=== PATIENT | female | born 1965 | race Caucasian/White ===

== ENCOUNTER 2018-08-04 12:38 | Emergency (ER) | payer MEDICAID ==
[~2018-08-04] VITALS: Ht 167.6 cm; Wt 167.8 kg
[~2018-08-04 12:38] MED LIST: CALC667T2 PO; ENAL2.5T PO; GABA300C10 PO; GLIP-115 PO; KETO2CRE4 TOP; LEVO200T7 PO; METF-370 PO
[2018-08-04 13:37] VITALS: BP 137/73
== END 2018-08-04 14:09 | disposition home or self-care (01) ==
LOC: ER 12:38
DX: E03.9 Hypothyroidism, unspecified (principal); E11.9 Type 2 diabetes mellitus without complications; I10 Essential (primary) hypertension; Z76.0 Encounter for issue of repeat prescription; Z88.0 Allergy status to penicillin

== ENCOUNTER 2019-04-14 20:42 | Inpatient (IN) | payer MEDICAID ==
[~2019-04-14] VITALS: Ht 170.2 cm; Wt 158.2 kg
[2019-04-14 21:48] LABS: Hemoglobin 13.5 g/dL (12.2-16.2); Mean Corpuscular Hgb Conc. 32.1 g/dL (32.0-36.0); Platelet Count (auto) 155 10^3/uL (140-450); Red Blood Cells 5.19 10^6/uL (4.0-5.20); Red Cell Distribution Width 17.3 % (11.8-14.3)
[2019-04-14 22:00] LABS: Calcium 7.9 mg/dL (8.5-10.1); Potassium 3.6 mmol/L (3.5-5.1); White Blood Cell 31.3 10^3/uL (4.4-10.8)
[2019-04-14 22:02] LABS: Basophils % (manual) 0 (0.0-2.0); Blast Cells 0; Eosinophils % (manual) 0 (0-7); Metamyelocytes % 0; Myelocytes % 0; Promyelocytes % 0; Reactive Lymphocytes 0
[2019-04-14 22:05] LABS: BUN/Creatinine Ratio 20.5; Bilirubin, Total 0.8 mg/dL (0.2-1.0); Total Protein 7.2 g/dL (6.4-8.2)
[2019-04-14] MEDS ORDERED: VANCOMYCIN 1GM/250ML 250 ML IV ONE (23:00)
[2019-04-14] MEDS ORDERED: CEFTRIAXONE SODIUM 2 GM in D5W 5% 50 ML IV ONE (23:00)
[2019-04-14] MEDS ORDERED: SODIUM CHLORIDE 0.9% 2,000 ML IV ONE (23:00)
[2019-04-14 23:14] LABS: Band Neutrophils % (manual) 11; Lymphocytes % (manual) 2 (10.0-50.0); Monocytes % (manual) 4 (0-12)
[2019-04-14] MEDS ORDERED: cefTRIAXone 1GM/50ML D5W 100 ML IV ONE (23:37)
[2019-04-15] MEDS ORDERED: HYDROcodone-ACET 7.5/325MG TAB PO ONE (00:45)
[2019-04-15 01:53] LABS: Urine Amorphous Crystal FEW /hpf (None Seen); Urine Bacteria MANY /hpf (None Seen); Urine Blood 1+ /uL (Negative); Urine Specific Gravity 1.022 (1.001-1.035); Urine WBC 116 /hpf (0 - 5); Urine WBC Clumps PRESENT /hpf (None Seen)
[2019-04-15] MEDS ORDERED: ONDANSETRON HCL 4 MG/2 ML VIAL IV PRN (03:00)
[2019-04-15] MEDS ORDERED: DEXTROSE (50%) 50ML SYRG IV PRN (03:00)
[2019-04-15] MEDS: SODIUM CHLORIDE 0.9% 1,000 ML IV SCH ×3 (03:27→23:24)
[2019-04-15] MEDS ORDERED: FLUCONAZOLE 200MG/100ML 100 ML IV ONE (03:30)
[2019-04-15] MEDS ORDERED: NITROGLYCERIN 0.4 MG SL TAB SL PRN (03:45)
[2019-04-15] MEDS ORDERED: MORPHINE SULF INJ 2 MG/ML SYRINGE 1ML IV PRN (03:45)
[2019-04-15] MEDS ORDERED: AZTREONAM 1GM INJ 1 GM in D5W 5% 50 ML IV SCH (06:00)
[2019-04-15] MEDS ORDERED: LEVOTHYROXINE PO SCH ×2 (06:00)
[2019-04-15] MEDS: ACCU-CHEK COMFORT CURVE STRIP VI SCH ×4 (06:52→22:57)
[2019-04-15] MEDS: LEVOTHYROXINE SODIUM 100 MCG TAB PO SCH (06:59)
[2019-04-15] MEDS: PANTOPRAZOLE 40 MG TAB PO SCH (06:59)
[2019-04-15] MEDS: InsuLIN REG 1unit/0.01ml Soln (100units/ml) SC SCH ×4 (06:59→23:23)
[2019-04-15] MEDS ORDERED: LEVOTHYROXINE SODIUM 100 MCG TAB PO SCH (07:00)
[2019-04-15] MEDS ORDERED: LEVOTHYROXINE SODIUM 50 MCG TAB PO SCH (07:00)
[2019-04-15 07:20] LABS: BUN/Creatinine Ratio 21.4; Calcium 7.2 mg/dL (8.5-10.1); Potassium 3.5 mmol/L (3.5-5.1)
[2019-04-15 07:22] LABS: Basophils # (auto) 0 uL; Basophils % (auto) 0.1 % (0.0-2.0); Eosinophils # (auto) 0.2 uL; Monocytes # (auto) 0.7 uL; Neutrophils % (auto) 94.9 % (37.0-80.0)
[2019-04-15 07:23] LABS: Eosinophils % (auto) 0.7 % (0.0-7.0); Hematocrit 39.1 % (36.0-46.0); Hemoglobin 12.7 g/dL (12.2-16.2); Lymphocytes # (auto) 0.3 uL; Lymphocytes % (auto) 1.4 % (10.0-50.0); Mean Corpuscular Hemoglobin 26.6 pg (28.0-32.0); Mean Corpuscular Hgb Conc. 32.3 g/dL (32.0-36.0); Mean Corpuscular Volume 82.3 fL (80.0-100.0); Monocytes % (auto) 2.9 % (0.0-12.0); Neutrophils # (auto) 23.8 uL; Platelet Count (auto) 131 10^3/uL (140-450); Red Blood Cells 4.76 10^6/uL (4.0-5.20); Red Cell Distribution Width 17.1 % (11.8-14.3); White Blood Cell 25.1 10^3/uL (4.4-10.8)
--- NOTE | 2019-04-15 10:55 | NUR ---
Telemetry admit from ER H[place],ESPINOZA admitted to Telemetry unit after SBAR received. Patient oriented to Love Saavedra, RN primary RN, unit, room, bed, and unit policies regarding patient care and visiting hours. Patient now on continuous telemetry monitoring, tele box # HC and telemetry reading on arrival to unit is . Patient placed on bedside oxygen, weighed by bedscale and encouraged to call if they need something. All questions and concerns addressed, patient verbalized understanding. Note:
--- NOTE | 2019-04-15 11:00 | NUR ---
Renal ultrasound completed.
--- NOTE | 2019-04-15 11:09 | NUR ---
To CT via WC.
[2019-04-15] MEDS: PARoxetine 20 MG TAB PO SCH (11:38)
[2019-04-15] MEDS: LEVOFLOXACIN 250MG 50 ML IV SCH (11:38)
--- NOTE | 2019-04-15 12:55 | NUR ---
Received call from Micro: blood culture gram + rods. Page placed to Dr. Fernando Barcenas.
[2019-04-15 13:00] VITALS: BP 120/76
[2019-04-15] MEDS: ACETAMINOPHEN 500 MG TAB PO PRN ×2 (14:15→22:48)
[2019-04-15 17:34] VITALS: BP 128/64
--- NOTE | 2019-04-15 19:30 | NUR ---
received pt from day rn poc reviewed
[2019-04-15 22:00] VITALS: BP 123/62
[2019-04-15] MEDS: traZODone HCL 50 MG TAB PO SCH (22:00)
[2019-04-15] MEDS: ATORVASTATIN 20 MG TAB PO SCH (22:45)
[2019-04-15] MEDS: TEMAZEPAM 15 MG CAP PO PRN (22:45)
--- NOTE | 2019-04-16 04:34 | NUR ---
resting with eyes closed no c/o discomfort
[2019-04-16 05:00] VITALS: BP_SYST 125; BP_SYST 99; BP_DIAS 53; BP_DIAS 55
[2019-04-16] MEDS: LEVOTHYROXINE SODIUM 100 MCG TAB PO SCH (05:58)
[2019-04-16] MEDS: PANTOPRAZOLE 40 MG TAB PO SCH (05:58)
[2019-04-16 06:07] LABS: Eosinophils # (auto) 0.1 uL; Eosinophils % (auto) 0.8 % (0.0-7.0); Lymphocytes # (auto) 0.5 uL; Mean Corpuscular Volume 81.6 fL (80.0-100.0); Monocytes # (auto) 0.9 uL
[2019-04-16 06:09] LABS: Basophils # (auto) 0 uL; Basophils % (auto) 0.3 % (0.0-2.0); Hematocrit 35.3 % (36.0-46.0); Hemoglobin 11.4 g/dL (12.2-16.2); Lymphocytes % (auto) 4.2 % (10.0-50.0); Mean Corpuscular Hemoglobin 26.3 pg (28.0-32.0); Mean Corpuscular Hgb Conc. 32.2 g/dL (32.0-36.0); Monocytes % (auto) 7.7 % (0.0-12.0); Neutrophils # (auto) 10.7 uL; Platelet Count (auto) 104 10^3/uL (140-450); Red Blood Cells 4.33 10^6/uL (4.0-5.20); Red Cell Distribution Width 17.4 % (11.8-14.3); White Blood Cell 12.3 10^3/uL (4.4-10.8)
[2019-04-16 06:20] LABS: Anion Gap 10 (5-15); BUN/Creatinine Ratio 21.3; Blood Urea Nitrogen 33 mg/dL (7-18); Carbon Dioxide 22 mmol/L (21-32); Chloride 110 mmol/L (98-107); GFR African American 45 mL/min; GFR Non-African American 37 mL/min; Glucose 151 mg/dL (74-106); Potassium 3.6 mmol/L (3.5-5.1); Sodium 142 mmol/L (136-145)
[2019-04-16 06:23] LABS: INR 1.05 (0.9-1.15); Partial Thromboplastin Time 33.8 sec (23.64-32.05)
[2019-04-16] MEDS: InsuLIN REG 1unit/0.01ml Soln (100units/ml) SC SCH ×4 (06:49→23:16)
[2019-04-16] MEDS: ACCU-CHEK COMFORT CURVE STRIP VI SCH ×4 (06:49→23:17)
--- NOTE | 2019-04-16 07:03 | NUR ---
REPORT GIVEN TO AM NURSE POC REVIEWED
--- NOTE | 2019-04-16 07:30 | NUR ---
Opening Shift Note Report received. Assumed care of patient, awake and alert. No S/S of distress/SOB or pain. Instructed on POC and to call for assist PRN, will continue to monitor for changes Q1hr and PRN.
[2019-04-16 09:00] VITALS: BP 123/66
[2019-04-16] MEDS: SODIUM CHLORIDE 0.9% 1,000 ML IV SCH ×2 (09:00→19:04)
[2019-04-16] MEDS: LEVOFLOXACIN 250MG 50 ML IV SCH (09:37)
[2019-04-16] MEDS: PARoxetine 20 MG TAB PO SCH (09:37)
[2019-04-16] MEDS: ACETAMINOPHEN 500 MG TAB PO PRN (10:03)
--- NOTE | 2019-04-16 10:13 | NUR ---
IV removal IV left wrist DC'd with clean sterile technique, catheter fully intact. Pressure dressing applied to site. Patient tolerated well. NOTE:
[2019-04-16 13:00] VITALS: BP 115/70
--- NOTE | 2019-04-16 13:45 | NUR ---
Dr. Barcenas in to see patient as primary.
[2019-04-16 17:18] VITALS: BP 114/61
--- NOTE | 2019-04-16 19:30 | NUR ---
received pt from day rn poc reviewed
--- NOTE | 2019-04-16 20:30 | NUR ---
family at bedside requested that pt have a socially responsible investment adviser talk with her about her living conditions
[2019-04-16 22:00] VITALS: BP 115/72
[2019-04-16] MEDS: traZODone HCL 50 MG TAB PO SCH (22:00)
--- NOTE | 2019-04-16 23:05 | NUR ---
friend of family negrito bautista [phone]
[2019-04-16] MEDS: ATORVASTATIN 20 MG TAB PO SCH (23:15)
[2019-04-16] MEDS: TEMAZEPAM 15 MG CAP PO PRN (23:18)
--- NOTE | 2019-04-17 02:51 | NUR ---
pts urine being strained after every void
[2019-04-17 05:00] VITALS: BP 122/56
[2019-04-17 06:37] LABS: Red Cell Distribution Width 16.8 % (11.8-14.3)
[2019-04-17] MEDS: LEVOTHYROXINE SODIUM 100 MCG TAB PO SCH (06:37)
[2019-04-17] MEDS: PANTOPRAZOLE 40 MG TAB PO SCH (06:37)
[2019-04-17] MEDS: SODIUM CHLORIDE 0.9% 1,000 ML IV SCH ×2 (06:37→15:41)
[2019-04-17] MEDS: ACCU-CHEK COMFORT CURVE STRIP VI SCH ×4 (06:38→21:24)
[2019-04-17] MEDS: InsuLIN REG 1unit/0.01ml Soln (100units/ml) SC SCH ×4 (06:39→21:25)
[2019-04-17 06:42] LABS: Hematocrit 37.7 % (36.0-46.0); Hemoglobin 12.5 g/dL (12.2-16.2); Mean Corpuscular Hemoglobin 26.9 pg (28.0-32.0); Mean Corpuscular Hgb Conc. 33.2 g/dL (32.0-36.0); Platelet Count (auto) 122 10^3/uL (140-450); Red Blood Cells 4.65 10^6/uL (4.0-5.20); White Blood Cell 6.4 10^3/uL (4.4-10.8)
[2019-04-17 06:50] LABS: BUN/Creatinine Ratio 19.4; Calcium 7.3 mg/dL (8.5-10.1); Potassium 3.6 mmol/L (3.5-5.1)
[2019-04-17 07:30] LABS: Basophils % (manual) 0 (0.0-2.0); Blast Cells 0; Myelocytes % 0; Promyelocytes % 0; Reactive Lymphocytes 0
--- NOTE | 2019-04-17 08:00 | NUR ---
Opening note Assumed care of patient awake and alert. No S/S of distress noted. Patient has a complaint of 9/10 headache, will medicate per MAR and MD order. Patient updated on POC for the day and all questions answered. Bed is in lowest, locked position with side rails up x2 and call light within reach. Will continue to monitor Q1h and PRN.
[2019-04-17 08:06] LABS: Band Neutrophils % (manual) 8; Eosinophils % (manual) 2 (0-7); Lymphocytes % (manual) 18 (10.0-50.0); Metamyelocytes % 1; Monocytes % (manual) 9 (0-12)
[2019-04-17 08:41] VITALS: BP 108/50
[2019-04-17 09:23] LABS: Free T4 (Free Thyroxine) 0.98 ng/dL (0.89-1.76)
[2019-04-17 09:24] LABS: T3 Total 0.51 ng/mL (0.60-1.81)
[2019-04-17] MEDS: PARoxetine 20 MG TAB PO SCH (10:06)
[2019-04-17] MEDS: LEVOFLOXACIN 250MG 50 ML IV SCH (10:06)
[2019-04-17] MEDS: ACETAMINOPHEN 500 MG TAB PO PRN (10:09)
[2019-04-17 12:43] VITALS: BP 122/75
[2019-04-17] MEDS ORDERED: SUCCINYLCHOLINE CHLORIDE 20 MG/ML 10ML VIAL IV ONE (14:43)
[2019-04-17] MEDS ORDERED: IOHEXOL 300 MG/ML 100ML BOTTLE IJ ONE (14:45)
[2019-04-17] MEDS ORDERED: fentaNYL CITRATE 100 MCG/2 ML VL ONE (14:46)
[2019-04-17] MEDS ORDERED: MIDAZOLAM HCL 1MG/1ML-2 ML VIAL ONE (14:46)
[2019-04-17] MEDS ORDERED: ONDANSETRON HCL 4 MG/2 ML VIAL ONE (14:47)
[2019-04-17] MEDS ORDERED: SODIUM CHLORIDE LOCK 10 ML ONE (14:47)
[2019-04-17] MEDS ORDERED: PROPOFOL 10 MG/ML 20 ML IV ONE (14:47)
[2019-04-17] MEDS ORDERED: ROCURONIUM 10MG/ML 10ML VIAL IV ONE (14:47)
[2019-04-17] MEDS ORDERED: LIDOCAINE HCL 2% TOP JELLY 5ML TOP ONE (14:54)
--- NOTE | 2019-04-17 15:00 | NUR ---
PATIENT TAKEN DOWN FOR PROCEDURE
--- NOTE | 2019-04-17 15:20 | NUR ---
PATIENT BACK FROM PRE-OP, UNABLE TO COMPLETE PROCEDURE.
[2019-04-17] MEDS ORDERED: MANNITOL FTV 25% 12.5 GM/50 ML 50 ML IV ONE (15:30)
[2019-04-17 16:17] VITALS: BP 135/54
--- NOTE | 2019-04-17 16:20 | NUR ---
VAGINAL CULTURE OBTAINED, SENT TO LAB VIA BULLET.
[2019-04-17] MEDS: TAMSULOSIN HYDROCHLORIDE 0.4 MG CAP PO SCH (17:42)
--- NOTE | 2019-04-17 18:20 | NUR ---
DOCTOR HORNER AT BEDSIDE, ORDERS RECEIVED, WILL PLACE AND CARRY OUT.
[2019-04-17] MEDS: ATORVASTATIN 20 MG TAB PO SCH (21:16)
[2019-04-17] MEDS: traZODone HCL 50 MG TAB PO SCH (21:24)
[2019-04-17 21:27] VITALS: BP 137/61
[2019-04-18 04:13] VITALS: BP 126/63
[2019-04-18] MEDS: LEVOTHYROXINE SODIUM 100 MCG TAB PO SCH (06:10)
[2019-04-18] MEDS: PANTOPRAZOLE 40 MG TAB PO SCH (06:10)
[2019-04-18] MEDS: InsuLIN REG 1unit/0.01ml Soln (100units/ml) SC SCH ×3 (06:11→16:58)
[2019-04-18] MEDS: ACCU-CHEK COMFORT CURVE STRIP VI SCH ×3 (06:11→16:58)
[2019-04-18 07:08] LABS: BUN/Creatinine Ratio 16.2; Calcium 7.2 mg/dL (8.5-10.1); Potassium 3.5 mmol/L (3.5-5.1)
[2019-04-18 07:14] LABS: Hemoglobin 11.6 g/dL (12.2-16.2)
[2019-04-18 07:15] LABS: Hematocrit 35.9 % (36.0-46.0); Mean Corpuscular Hemoglobin 26.2 pg (28.0-32.0); Mean Corpuscular Hgb Conc. 32.2 g/dL (32.0-36.0); Mean Corpuscular Volume 81.2 fL (80.0-100.0); Platelet Count (auto) 132 10^3/uL (140-450); Red Blood Cells 4.42 10^6/uL (4.0-5.20); Red Cell Distribution Width 16.6 % (11.8-14.3); White Blood Cell 5.4 10^3/uL (4.4-10.8)
[2019-04-18 08:00] VITALS: BP 120/57
[2019-04-18 08:54] LABS: Basophils % (manual) 0 (0.0-2.0); Blast Cells 0; Metamyelocytes % 0; Myelocytes % 0; Promyelocytes % 0; Reactive Lymphocytes 0
--- NOTE | 2019-04-18 09:06 | NUR ---
Noelle from [facility] called in regards to referral for patient.
[2019-04-18 10:09] LABS: Band Neutrophils % (manual) 14; Eosinophils % (manual) 3 (0-7); Lymphocytes % (manual) 30 (10.0-50.0); Monocytes % (manual) 8 (0-12)
[2019-04-18] MEDS: PARoxetine 20 MG TAB PO SCH (11:26)
[2019-04-18] MEDS: SODIUM CHLORIDE 0.9% 1,000 ML IV SCH ×2 (11:26)
[2019-04-18] MEDS: LEVOFLOXACIN 250MG 50 ML IV SCH (11:27)
--- NOTE | 2019-04-18 11:32 | NUR ---
Nutrition Assessment Notes please see attached link for complete assessment Est. Needs ABW [id number] kcal (17-20 kcal/kgBW), 87-109 gms pro (0.8-1.0 gms/kgBW r/t elev RFT CKD). Will continue to monitor pertinent labs and reassess nutrient need prn Addendum: 04/18/19 at [address] Amended: Links added.
--- NOTE | 2019-04-18 13:20 | NUR ---
APS at bedside
[2019-04-18 14:00] VITALS: BP 122/58
[2019-04-18] MEDS: ACETAMINOPHEN 500 MG TAB PO PRN (14:58)
--- NOTE | 2019-04-18 15:09 | NUR ---
Dr. Espinoza cleared patient for discharge
--- NOTE | 2019-04-18 15:49 | NUR ---
called [facility] case manager to check on APS status
[2019-04-18] MEDS ORDERED: LEVO500T21 PO (16:29)
[2019-04-18] MEDS ORDERED: FLUC150T38 PO (16:29)
[2019-04-18] MEDS: TAMSULOSIN HYDROCHLORIDE 0.4 MG CAP PO SCH (16:58)
[2019-04-18 17:00] VITALS: BP 134/84
--- NOTE | 2019-04-18 20:15 | NUR ---
Discharge instructions given as ordered. Encourage to follow up with PMD as instructed. All questions and concerns addressed. Patient verbalized understanding. Medication reconciliation form completed and copy given to patient. PRESCRIPTIONS FILLED AND GIVEN TO PATIENT BY MORNING SHIFT RN. IV removed with catheter intact, pressure dressing applied BY MORNING SHIFT RN. Telemetry unit returned to ICU BY MORNING SHIFT RN. Patient taken to vehicle via wheelchair with all personal belongings, accompanied by staff and family member. No distress noted at time of departure.
[2019-04-19] MEDS ORDERED: FLUCONAZOLE 100 MG TAB PO SCH (10:00)
== END 2019-04-18 18:30 | disposition home health service (06) | DRG 720 ==
LOC: ER 20:45 → TELE 20:46 → TELE-WESTW 04-15 10:53
PROVIDERS: ADMIT Nurse Practitioner Family; ATTEND Internal Medicine Nephrology
DX: A41.50 Gram-negative sepsis, unspecified (principal); N17.0 Acute kidney failure with tubular necrosis; E11.22 Type 2 diabetes mellitus with diabetic chronic kidney disease; E27.8 Other specified disorders of adrenal gland; N18.3 Chronic kidney disease, stage 3 (moderate); E44.1 Mild protein-calorie malnutrition; N13.6 Pyonephrosis; E66.01 Morbid (severe) obesity due to excess calories; S09.90XA Unspecified injury of head, initial encounter; B37.9 Candidiasis, unspecified; B96.89 Other specified bacterial agents as the cause of diseases classified elsewhere; I12.9 Hypertensive chronic kidney disease with stage 1 through stage 4 chronic kidney disease, or unspecified chronic kidney disease; D35.00 Benign neoplasm of unspecified adrenal gland; K43.9 Ventral hernia without obstruction or gangrene; K76.0 Fatty (change of) liver, not elsewhere classified; N89.8 Other specified noninflammatory disorders of vagina; N90.89 Other specified noninflammatory disorders of vulva and perineum; W18.39XA Other fall on same level, initial encounter; Z79.84 Long term (current) use of oral hypoglycemic drugs; Z82.5 Family history of asthma and other chronic lower respiratory diseases; Z87.442 Personal history of urinary calculi; Z83.3 Family history of diabetes mellitus; Y93.89 Activity, other specified; Y92.89 Other specified places as the place of occurrence of the external cause; Y99.8 Other external cause status; Z68.43 Body mass index [BMI] 50.0-59.9, adult; Z79.899 Other long term (current) drug therapy
CPT/HCPCS: 36415; 36600; 70450; 71045; 74176; 76775; 80048; 80053; 81001; 82010; 82805; 82962; 83036; 83605; 83735; 84439; 84443; 84480; 85007; 85025; 85027; 85610; 85730; 86141; 87040; 87070; 87077; 87086; 87186; 93005; 93306; 96365; 96366; 96368; G0378; J0330; J0696; J1450; J1815; J2250; J2405; J2704; J7060

== ENCOUNTER 2020-08-16 16:38 | Inpatient (IN) | payer MEDICAID ==
[~2020-08-16] VITALS: Ht 170.2 cm; Wt 149.7 kg
[~2020-08-16 16:38] MED LIST changes: -ENAL2.5T PO; +FLUC150T38 PO; -GLIP-115 PO; +GLIP5TAB12 PO; +LEVO500T21 PO
[2020-08-16 17:57] LABS: Hematocrit 38.3 % (36.0-46.0); Hemoglobin 12.3 g/dL (12.2-16.2); Mean Corpuscular Hemoglobin 26.7 pg (28.0-32.0); Mean Corpuscular Volume 83.2 fL (80.0-100.0); Platelet Count (auto) 74 10^3/uL (140-450); Red Cell Distribution Width 16.1 % (11.8-14.3); White Blood Cell 20.1 10^3/uL (4.4-10.8)
[2020-08-16] MEDS ORDERED: SODIUM CHLORIDE 0.9% 1,000 ML IVB ONE ×2 (18:00)
[2020-08-16 18:01] LABS: Basophils % (manual) 0 (0.0-2.0); Blast Cells 0; Eosinophils % (manual) 0 (0-7); Myelocytes % 0; Promyelocytes % 0; Reactive Lymphocytes 0
[2020-08-16 18:05] LABS: Albumin 1.7 g/dL (3.4-5.0); Anion Gap 15 (5-15); Blood Urea Nitrogen 53 mg/dL (7-18); Calcium 7.4 mg/dL (8.5-10.1); Carbon Dioxide 17 mmol/L (21-32); Chloride 102 mmol/L (98-107); Glucose 198 mg/dL (74-106); Potassium 3.7 mmol/L (3.5-5.1); Sodium 134 mmol/L (136-145)
[2020-08-16 18:11] LABS: Alanine Aminotransferase 19 U/L (13-56); Alkaline Phosphatase 190 U/L (45-117); Aspartate Aminotransferase 28 U/L (15-37); BUN/Creatinine Ratio 18.8; Bilirubin, Total 1.8 mg/dL (0.2-1.0); GFR African American 22 mL/min; GFR Non-African American 18 mL/min; Total Protein 5.7 g/dL (6.4-8.2)
[2020-08-16 19:20] LABS: Band Neutrophils % (manual) 39; Lymphocytes % (manual) 6 (10.0-50.0); Metamyelocytes % 1; Monocytes % (manual) 7 (0-12)
[2020-08-16] MEDS ORDERED: cefTRIAXone 1GM/50ML D5W 50 ML IV ONE (19:30)
[2020-08-16 19:51] LABS: INR 1.1 (0.9-1.15); Partial Thromboplastin Time 33.3 sec (23.0-31.2)
[2020-08-16 20:24] LABS: Lactic Acid w/Reflex 3.9 mmol/L (0.4-2.0)
[2020-08-16 21:52] LABS: Urine Amorphous Crystal FEW /hpf (None Seen); Urine Bacteria NONE SEEN /hpf (None Seen); Urine Blood 2+ /uL (Negative); Urine Mucus FEW (None Seen); Urine Specific Gravity 1.023 (1.001-1.035); Urine WBC 854 /hpf (0 - 5); Urine WBC Clumps PRESENT /hpf (None Seen)
[2020-08-16] MEDS ORDERED: ONDANSETRON HCL 4 MG/2 ML VIAL IV PRN (22:30)
[2020-08-16] MEDS ORDERED: MORPHINE SULF INJ 2 MG/ML SYRINGE 1ML IV PRN ×2 (22:30)
[2020-08-16] MEDS ORDERED: NITROGLYCERIN 0.4 MG SL TAB SL PRN (22:30)
[2020-08-16] MEDS: SODIUM CHLORIDE 0.9% 1,000 ML IV SCH (23:14)
[2020-08-17] VITALS (8 sets, daily range): BP systolic 91–157; BP diastolic 49–84
--- NOTE | 2020-08-17 01:50 | NUR ---
Telemetry admit from ER [place] admitted to Telemetry unit after SBAR received. Patient oriented to CLIVE PETERSON RN primary RN, unit, room, bed, and unit policies regarding patient care and visiting hours. Patient now on continuous telemetry monitoring, tele box # 14 and telemetry reading on arrival to unit is Sinus Rhythm at 97BPM. Patient placed on bedside oxygen, weighed by bedscale and encouraged to call if they need something. All questions and concerns addressed, patient verbalized understanding.
--- NOTE | 2020-08-17 03:00 | NUR ---
PATIENT STARTED TO HAVE CHILLS. COVERED WITH BLANKETS AND GIVEN HOT TEA AND WARM PACKS. MONITOR CLOSELY.
--- NOTE | 2020-08-17 04:15 | NUR ---
CHILLS STOP. PATIENT IS RESTING IN BED. NO MORE CHILLS NOTED. PATIENT'S TEMPERATURE AT HIS TIME IS 99.1 . WILL MONITOR.
--- NOTE | 2020-08-17 04:25 | NUR ---
CALLED TO GIVE REPORT TO RECEIVING RN. RN NOT AVAILABLE FOR REPORT AT THIS TIME. WILL MONITOR.
--- NOTE | 2020-08-17 05:00 | NUR ---
REPORT GIVEN TO JINNY QUINTERO RN
--- NOTE | 2020-08-17 05:30 | NUR ---
RECEIVED PATIENT FROM COVID UNIT AND TRANSFERRED WITH HOSPITAL BED. PATIENT TOLERATED WELL. NO S/S OF DISTRESS NOTED. VITALS, TEMP 100.1, HR 124, RR 19, O2 SAT 92% ON RA. BP 94/57. COOLING MEASURE APPLIED. BED IN LOWEST POSITION WITH SIDE RAILS UP X 2. CALL DOLAN WITHIN REACH. ALARM ON. CONTINUE TO MONITOR FOR CHANGES Q1H AND PRN.
--- NOTE | 2020-08-17 05:42 | NUR ---
PATIENT TRANSFERRED TO [facility] WITH ALL PERSONAL BELONGINGS. NO DISTRESS NOTED AT TIME OF TRANSFER.
[2020-08-17 07:14] LABS: Mean Corpuscular Hgb Conc. 32.3 g/dL (32.0-36.0); Red Blood Cells 4.54 10^6/uL (4.0-5.20)
[2020-08-17 07:16] LABS: Hematocrit 37.1 % (36.0-46.0); Mean Corpuscular Hemoglobin 26.4 pg (28.0-32.0); Mean Corpuscular Volume 81.7 fL (80.0-100.0); Platelet Count (auto) 60 10^3/uL (140-450); Red Cell Distribution Width 15.8 % (11.8-14.3); White Blood Cell 9.4 10^3/uL (4.4-10.8)
--- NOTE | 2020-08-17 07:17 | NUR ---
OPENING SHIFT NOTE Assumed care of patient from production utility worker RN. Patient is alert and oriented x4, no signs of distress noted, patient denies pain. She was updated on the plan of care and verbalized understanding. Patient has a saucedo draining cloudy melvin urine to gravity, no kinks or loops noted in the tubing. Bed is locked, in the lowest position and the call light is in reach. Patient was encouraged to call for assistance as needed.
[2020-08-17 07:24] LABS: Potassium 3.2 mmol/L (3.5-5.1)
[2020-08-17 07:30] LABS: Albumin 1.7 g/dL (3.4-5.0); BUN/Creatinine Ratio 22.9; Calcium 7.5 mg/dL (8.5-10.1); Magnesium 2.1 mg/dL (1.6-2.6)
[2020-08-17 07:35] LABS: Basophils % (manual) 0 (0.0-2.0); Blast Cells 0; Eosinophils % (manual) 0 (0-7); Metamyelocytes % 0; Myelocytes % 0; Promyelocytes % 0; Reactive Lymphocytes 0
[2020-08-17 07:38] LABS: Bilirubin, Total 2.3 mg/dL (0.2-1.0); Phosphorus 2.7 mg/dL (2.5-4.90); Total Protein 5.8 g/dL (6.4-8.2)
--- NOTE | 2020-08-17 07:40 | NUR ---
DAIN AT BEDSIDE New order received for CT of abdomen of pelvis without contrast, read back and verified.
--- NOTE | 2020-08-17 08:40 | NUR ---
PATIENT TAKEN TO CT. accompanied by tech. no signs of distress noted.
--- NOTE | 2020-08-17 09:02 | NUR ---
PATIENT BACK FROM CT no signs of distress noted.
[2020-08-17] MEDS: FAMOTIDINE 20 MG TAB PO SCH (09:48)
[2020-08-17] MEDS: cefTRIAXone 1GM/50ML D5W 50 ML IV SCH (09:48)
[2020-08-17] MEDS: SODIUM CHLORIDE 0.9% 1,000 ML IV SCH (09:48)
--- NOTE | 2020-08-17 10:13 | NUR ---
CALLED GAUTAM updated on the patient status and results of CT abdomen, positive blood cultures. New orders received for repeat blood cultures, urology consult for MD YODER. New order also received for ACHS accucheck and mild insulin sliding scale. Orders were read back and verified.
[2020-08-17] MEDS ORDERED: DEXTROSE (50%) 50ML SYRG IV PRN (10:45)
[2020-08-17] MEDS: ACCU-CHEK COMFORT CURVE STRIP VI SCH ×3 (11:20→22:00)
[2020-08-17] MEDS: InsuLIN REG 1unit/0.01ml Soln (100units/ml) SC SCH ×3 (11:36→22:00)
[2020-08-17 12:10] LABS: Urine Bacteria FEW /hpf (None Seen); Urine Blood 2+ /uL (Negative); Urine Mucus FEW (None Seen); Urine Specific Gravity 1.018 (1.001-1.035); Urine WBC 264 /hpf (0 - 5); Urine WBC Clumps PRESENT /hpf (None Seen)
--- NOTE | 2020-08-17 12:59 | NUR ---
PAGED DAIN regarding ordered heparin and patient platelet levels of 60, awaiting call back.
[2020-08-17] MEDS: HEPARIN SODIUM (PORCINE) 5000 UNITS/ML 1ML VIAL SC SCH ×2 (13:30→22:00)
[2020-08-17 14:05] LABS: Band Neutrophils % (manual) 25; Lymphocytes % (manual) 5 (10.0-50.0); Monocytes % (manual) 3 (0-12)
--- NOTE | 2020-08-17 14:25 | NUR ---
DAIN called back order to hold heparin due to decreased platelets, read back and verified
[2020-08-17 14:41] LABS: Creatinine, Urine 83 mg/dL (30.0-125.0); Sodium Urine 33 mmol/L (40-220)
[2020-08-17 14:42] LABS: Protein, Urine 111.6 mg/dL (0.0-11.9)
[2020-08-17] MEDS: ACETAMINOPHEN 325 MG TAB PO PRN (23:56)
--- NOTE | 2020-08-18 02:00 | NUR ---
PT MOVED TO 289A . TOLERATED WELL. OOB AMBULATED TO CHAIR. GOOD STEADY GAIT. CALL LIGHT IN REACH.
[2020-08-18 05:00] VITALS: BP 90/59
[2020-08-18] MEDS: InsuLIN REG 1unit/0.01ml Soln (100units/ml) SC SCH ×4 (05:11→22:33)
[2020-08-18] MEDS: ACCU-CHEK COMFORT CURVE STRIP VI SCH ×4 (05:43→22:33)
[2020-08-18 06:10] LABS: Basophils # (auto) 0 10 ^3/uL (0-0.2); Lymphocytes # (auto) 0.3 10 ^3/uL (0.4-5.4); Lymphocytes % (auto) 1.3 % (10.0-50.0); Monocytes # (auto) 0.6 10 ^3/uL (0-1.3)
[2020-08-18 06:17] LABS: Basophils % (auto) 0.1 % (0.0-2.0); Eosinophils # (auto) 0.5 10 ^3/uL (0-0.8); Eosinophils % (auto) 2.5 % (0.0-7.0); Hematocrit 40.1 % (36.0-46.0); Mean Corpuscular Hemoglobin 26.7 pg (28.0-32.0); Mean Corpuscular Hgb Conc. 32.4 g/dL (32.0-36.0); Mean Corpuscular Volume 82.3 fL (80.0-100.0); Monocytes % (auto) 2.9 % (0.0-12.0); Neutrophils # (auto) 19.4 10 ^3/uL (1.6-8.6); Neutrophils % (auto) 93.2 % (37.0-80.0); Platelet Count (auto) 39 10^3/uL (140-450); Red Blood Cells 4.87 10^6/uL (4.0-5.20); Red Cell Distribution Width 16.3 % (11.8-14.3); White Blood Cell 20.8 10^3/uL (4.4-10.8)
[2020-08-18 06:28] LABS: Potassium 3.9 mmol/L (3.5-5.1)
[2020-08-18 06:33] LABS: Albumin 1.7 g/dL (3.4-5.0); BUN/Creatinine Ratio 23.5; Calcium 7.5 mg/dL (8.5-10.1)
[2020-08-18 06:36] LABS: Bilirubin, Total 3.1 mg/dL (0.2-1.0); Total Protein 6.2 g/dL (6.4-8.2)
[2020-08-18] MEDS: LEVOTHYROXINE SODIUM 100 MCG TAB PO SCH (06:36)
--- NOTE | 2020-08-18 07:02 | NUR ---
OPENING SHIFT NOTE Assumed care of patient from refractory specialist RN. Patient is alert and oriented x4, no signs of distress noted, denies pain. She was updated on the plan of care and verbalized understanding. Bed is locked, in the lowest position, side rails are up x2 and call light is in reach. Patient was encouraged to call for assistance as needed.
[2020-08-18 08:40] VITALS: BP 97/50
--- NOTE | 2020-08-18 09:16 | NUR ---
DAIN AT BEDSIDE Updated on the patient status. Plan of care was discussed with the patient and she verbalized understanding.
[2020-08-18] MEDS ORDERED: ALLOPURINOL 300 MG TAB PO SCH (10:00)
[2020-08-18] MEDS: HEPARIN SODIUM (PORCINE) 5000 UNITS/ML 1ML VIAL SC SCH ×2 (10:00→22:00)
[2020-08-18 10:13] LABS: INR 1.16 (0.9-1.15)
[2020-08-18] MEDS: cefTRIAXone 1GM/50ML D5W 50 ML IV SCH (10:52)
[2020-08-18] MEDS: SODIUM BICARBONATE 50ML VIAL 100 ML in SOD CHL 0.45% 1,000 ML IV SCH ×2 (10:52→20:30)
[2020-08-18] MEDS: ACETAMINOPHEN 325 MG TAB PO PRN (10:52)
[2020-08-18 11:22] LABS: Fibrinogen > 860 mg/dL (177-375)
--- NOTE | 2020-08-18 11:30 | NUR ---
MORIS GAUTAM made aware of DIC panel results, no new orders received.
[2020-08-18 12:46] VITALS: BP 104/47
[2020-08-18] MEDS ORDERED: THROAT LOZENGES(CEPASTAT) MT PRN (16:00)
[2020-08-18 16:33] VITALS: BP 91/50
[2020-08-18] MEDS ORDERED: TAMSULOSIN HYDROCHLORIDE 0.4 MG CAP PO ONE (17:45)
[2020-08-18] MEDS ORDERED: MANNITOL FTV 25% 12.5 GM/50 ML 50 ML IV ONE (17:45)
[2020-08-18] MEDS ORDERED: SODIUM CHLORIDE 0.9% 1,000 ML IV ONE (17:45)
--- NOTE | 2020-08-18 17:50 | NUR ---
BABITA MADE AWARE OF DECREASED BP BP 91/50, Per MD infuse bolus first and then administer mannitol as ordered.
--- NOTE | 2020-08-18 19:30 | NUR ---
Opening Shift Note Assumed care of patient, awake and alert. No S/S of distress/SOB or pain. Instructed on POC and to call for assist PRN, will continue to monitor for changes Q1hr and PRN.
[2020-08-18 20:00] VITALS: BP 118/52
--- NOTE | 2020-08-18 20:00 | NUR ---
IV removal Patient pulled out IV while moving to the bedside commode.
--- NOTE | 2020-08-18 20:30 | NUR ---
IV insertion IV access obtained, via clean sterile technique by inserting 22 gauge catheter at RFA after attempts. IV secured properly. No trauma to site. Patient tolerated well.
[2020-08-18 21:00] VITALS: BP_SYST 118; BP_SYST 152; BP_DIAS 52; BP_DIAS 72
--- NOTE | 2020-08-18 22:50 | NUR ---
A-fib rhythm/MD orders Tele notified this RN about patient rhythm change from Sinus Tach to Afib and high heart rate in the 150s and 160s. Dr. Obando made aware of patient's rhythm and increase heart rate. Dr. Obando ordered and EKG to be done. After EKG results, Dr. Obando ordered 5 mg Metoprolol IV once, 12.5 mg Metoprolol PO once, and 12.5 mg Metoprolol PO BID. Repeated orders to verified.
[2020-08-18] MEDS ORDERED: METOPROLOL TARTRATE 25 MG TAB PO ONE (23:00)
[2020-08-18] MEDS ORDERED: METOPROLOL TARTRATE 1MG/1ML-5ML VIAL IV ONE (23:00)
[2020-08-19] VITALS (7 sets, daily range): BP systolic 111–123; BP diastolic 46–70
--- NOTE | 2020-08-19 00:30 | NUR ---
Bed Bath Bed Bath and bed sheets changed. Patient has a foul/strong smell to the vagina area.
[2020-08-19 05:28] LABS: Hemoglobin 13.1 g/dL (12.2-16.2); Lymphocytes # (auto) 0.7 10 ^3/uL (0.4-5.4); Nucleated Red Blood Cells % 0.1 %; Platelet Count (auto) 35 10^3/uL (140-450)
[2020-08-19 05:32] LABS: Basophils # (auto) 0 10 ^3/uL (0-0.2); Basophils % (auto) 0.3 % (0.0-2.0); Eosinophils # (auto) 0.2 10 ^3/uL (0-0.8); Eosinophils % (auto) 1.2 % (0.0-7.0); Hematocrit 39.5 % (36.0-46.0); Lymphocytes % (auto) 4.1 % (10.0-50.0); Mean Corpuscular Hemoglobin 26.8 pg (28.0-32.0); Mean Corpuscular Hgb Conc. 33.1 g/dL (32.0-36.0); Mean Corpuscular Volume 80.8 fL (80.0-100.0); Monocytes # (auto) 0.6 10 ^3/uL (0-1.3); Monocytes % (auto) 4.1 % (0.0-12.0); Neutrophils # (auto) 14.5 10 ^3/uL (1.6-8.6); Neutrophils % (auto) 90.3 % (37.0-80.0); Red Blood Cells 4.89 10^6/uL (4.0-5.20)
[2020-08-19] MEDS: LEVOTHYROXINE SODIUM 100 MCG TAB PO SCH (06:24)
[2020-08-19] MEDS: InsuLIN REG 1unit/0.01ml Soln (100units/ml) SC SCH ×4 (06:24→22:08)
[2020-08-19] MEDS: ACCU-CHEK COMFORT CURVE STRIP VI SCH ×4 (06:24→22:00)
[2020-08-19] MEDS: SODIUM BICARBONATE 50ML VIAL 100 ML in SOD CHL 0.45% 1,000 ML IV SCH ×2 (08:00→17:21)
[2020-08-19] MEDS: cefTRIAXone 1GM/50ML D5W 50 ML IV SCH (09:48)
[2020-08-19] MEDS: FAMOTIDINE 20 MG TAB PO SCH (09:49)
[2020-08-19] MEDS: METOPROLOL TARTRATE 25 MG TAB PO SCH ×2 (09:50→22:00)
--- NOTE | 2020-08-19 11:30 | NUR ---
BAKELITE MOLDER SPOKE TO DR GOMEZ RE: NEPHROSTOMY TUBE PLACEMENT -STATE PLATGELETS TOO LOW AND NEED TO BE CORRECTED PRIOR TO PROCEDURE - BAKELITE MOLDER INFORMED PATIENT'S RN RENETTA. DR GOMEZ ALSO SPOKE TO DR GAUTAM RE: CORRECTION OF PLATELETS, PATIENT'S RN AWARE. PROCEDURE TENTATIVELY PLANNED FOR TOMORROW AM.
--- NOTE | 2020-08-19 15:34 | NUR ---
URINE SAMPLE SENT TO LAB
--- NOTE | 2020-08-19 15:34 | NUR ---
PATIENT NEEDS TO BE NPO FOR GALLBLADDER ULTRASOUND PER TECH, PATIENT NEEDS TO BE NPO FOR ULTRASOUND. WILL PERFORM TEST AROUND 1999
[2020-08-19 16:23] LABS: Urine Bacteria FEW /hpf (None Seen); Urine Blood 2+ /uL (Negative); Urine Mucus FEW (None Seen); Urine Specific Gravity 1.018 (1.001-1.035); Urine WBC 33 /hpf (0 - 5)
[2020-08-19 16:58] LABS: BUN/Creatinine Ratio 30.3; Calcium 7.1 mg/dL (8.5-10.1)
--- NOTE | 2020-08-19 19:30 | NUR ---
Opening Shift Note Assumed care of patient, awake and alert x4. No S/S of distress/SOB or pain. Tele box matches pt all leads in place. Bed lowered and locked call light in reach. Instructed on POC and to call for assist PRN, will continue to monitor for changes Q1hr and PRN.
--- NOTE | 2020-08-19 19:45 | NUR ---
PAGED DR GAUTAM REGARDING BLOOD CONSENT NOT BEING SIGNED BY PHYSICIAN, UNABLE TO SOLE TRIMMER ANY BLOOD PRODUCT WITHOUT SIGNATURE, ER MD WILL NOT SIGN CONSENT. WILL ENDORSE TO STOREHOUSE CLERK RN.
--- NOTE | 2020-08-19 20:12 | NUR ---
Dr Forbes gave verbal consent for blood product transfusion (platelets) transfusion for pt
[2020-08-19] MEDS: ACETAMINOPHEN 325 MG TAB PO PRN (21:45)
[2020-08-20] VITALS (21 sets, daily range): BP systolic 92–151; BP diastolic 49–111
[2020-08-20] MEDS: SODIUM BICARBONATE 50ML VIAL 100 ML in SOD CHL 0.45% 1,000 ML IV SCH ×2 (05:30→15:32)
[2020-08-20] MEDS: ACCU-CHEK COMFORT CURVE STRIP VI SCH ×4 (06:49→22:29)
[2020-08-20] MEDS: LEVOTHYROXINE SODIUM 100 MCG TAB PO SCH (06:49)
[2020-08-20] MEDS: InsuLIN REG 1unit/0.01ml Soln (100units/ml) SC SCH ×4 (06:51→22:31)
[2020-08-20 07:11] LABS: Hematocrit 36.7 % (36.0-46.0); Hemoglobin 11.9 g/dL (12.2-16.2); Mean Corpuscular Hemoglobin 26.5 pg (28.0-32.0); Mean Corpuscular Hgb Conc. 32.5 g/dL (32.0-36.0)
[2020-08-20 07:24] LABS: INR 1.02 (0.9-1.15); Partial Thromboplastin Time 26.9 sec (23.0-31.2)
[2020-08-20 07:30] LABS: Calcium 6.8 mg/dL (8.5-10.1); Potassium 3.7 mmol/L (3.5-5.1)
[2020-08-20 07:43] LABS: Basophils # (auto) 0 10 ^3/uL (0-0.2); Basophils % (auto) 0.1 % (0.0-2.0); Eosinophils # (auto) 0.1 10 ^3/uL (0-0.8); Eosinophils % (auto) 0.3 % (0.0-7.0); Lymphocytes # (auto) 0.8 10 ^3/uL (0.4-5.4); Lymphocytes % (auto) 4.5 % (10.0-50.0); Mean Corpuscular Volume 81.5 fL (80.0-100.0); Monocytes # (auto) 0.6 10 ^3/uL (0-1.3); Monocytes % (auto) 3.6 % (0.0-12.0); Neutrophils # (auto) 15.3 10 ^3/uL (1.6-8.6); Neutrophils % (auto) 91.5 % (37.0-80.0); Platelet Count (auto) 36 10^3/uL (140-450); Red Cell Distribution Width 16.2 % (11.8-14.3); White Blood Cell 16.7 10^3/uL (4.4-10.8)
[2020-08-20] MEDS ORDERED: fentaNYL CITRATE 100 MCG/2 ML VL IV ONE (08:00)
[2020-08-20] MEDS ORDERED: IV IMMUNE GLOBULIN(IVIG) 10% 20G/200ML IV SCH (10:00)
[2020-08-20] MEDS ORDERED: levoFLOXacin 750MG 150 ML IV SCH (10:00)
[2020-08-20] MEDS: METOPROLOL TARTRATE 25 MG TAB PO SCH ×2 (10:46→22:29)
--- NOTE | 2020-08-20 13:27 | NUR ---
3 units of platelets transfused Pt tolerated well, VS stable throughout, no adverse reaction noted.
[2020-08-20] MEDS: FAMOTIDINE 20 MG TAB PO SCH ×2 (13:45→22:29)
[2020-08-20] MEDS: ACETAMINOPHEN 325 MG TAB PO SCH (13:46)
[2020-08-20] MEDS: diphenhdrAMINE HCL 50 MG/1 ML VL IV SCH (13:46)
[2020-08-20] MEDS: methylPREDNISolone SOD SUCC 40 MG/ML VL IV SCH (13:46)
[2020-08-20 14:11] LABS: Albumin 1.5 g/dL (3.4-5.0); Bilirubin, Direct 0.8 mg/dL (0-0.2)
[2020-08-20 14:15] LABS: Bilirubin, Total 1.2 mg/dL (0.2-1.0); Total Protein 5.1 g/dL (6.4-8.2)
[2020-08-20] MEDS: IV IMMUNE GLOBULIN(IVIG) 10% 20G/200ML IV SCH (14:31)
[2020-08-20 14:59] LABS: Basophils # (auto) 0 10 ^3/uL (0-0.2); Eosinophils # (auto) 0 10 ^3/uL (0-0.8); Eosinophils % (auto) 0.2 % (0.0-7.0); Mean Corpuscular Hemoglobin 26.3 pg (28.0-32.0); Platelet Count (auto) 64 10^3/uL (140-450)
[2020-08-20 15:00] LABS: Basophils % (auto) 0.2 % (0.0-2.0); Hematocrit 35.3 % (36.0-46.0); Hemoglobin 11.6 g/dL (12.2-16.2); Lymphocytes # (auto) 0.3 10 ^3/uL (0.4-5.4); Mean Corpuscular Hgb Conc. 32.9 g/dL (32.0-36.0); Monocytes # (auto) 0.8 10 ^3/uL (0-1.3); Monocytes % (auto) 4.3 % (0.0-12.0); Neutrophils # (auto) 16.3 10 ^3/uL (1.6-8.6); Neutrophils % (auto) 93.3 % (37.0-80.0); Red Blood Cells 4.42 10^6/uL (4.0-5.20); Red Cell Distribution Width 15.9 % (11.8-14.3); White Blood Cell 17.5 10^3/uL (4.4-10.8)
--- NOTE | 2020-08-20 16:24 | NUR ---
Nutrition Assessment Notes Please refer to link for full assessment notes. Est Energy needs: 6870-7536 kcals (12-15 kcal/kgBW) Est Protein needs: 130-163 gms/day (0.8-1.0 gm/kgBW) Will continue to monitor and reassess prn. Addendum: 08/20/20 at [address] Amended: Links added.
[2020-08-20] MEDS: ACETAMINOPHEN 325 MG TAB PO PRN (16:43)
--- NOTE | 2020-08-20 18:38 | NUR ---
PATIENT ROUNDS PATIENT SITTING OFF THE SIDE OF THE BED, EATING DINNER. NO DISTRESS NOTED. PATIENT JUNE PAIN AT THIS TIME. WILL ENDORSE CARE TO CONTENT ARCHITECT RN.
--- NOTE | 2020-08-20 19:15 | NUR ---
Opening Shift Note Assumed care of patient, awake and alert x 4. No S/S of distress/SOB or pain. Tele box matches pt all leads in place. Bed locked and lowered side rails up x 2. Call light and bedside table within reach. Instructed on POC and to call for assist PRN, will continue to monitor for changes Q1hr and PRN.
[2020-08-21] VITALS (7 sets, daily range): BP systolic 107–139; BP diastolic 60–98
--- NOTE | 2020-08-21 01:17 | NUR ---
Pt having platelet transfusion bags of platelets do not scan lab verified can override.
--- NOTE | 2020-08-21 01:18 | NUR ---
Vitals before transfusion 98.50 oral, HR 117, BP 139/98, RR 26, O2sat 92%
--- NOTE | 2020-08-21 02:48 | NUR ---
Transfusion ended vitals; 98.2, BP 127/80, HR 101, RR24, O2SAT 93%. No signs of distress, tolerated well.
[2020-08-21] MEDS: SODIUM BICARBONATE 50ML VIAL 100 ML in SOD CHL 0.45% 1,000 ML IV SCH ×2 (03:30→14:30)
[2020-08-21 06:18] LABS: Basophils # (auto) 0 10 ^3/uL (0-0.2); Eosinophils # (auto) 0 10 ^3/uL (0-0.8); Lymphocytes # (auto) 0.4 10 ^3/uL (0.4-5.4); Lymphocytes % (auto) 2.1 % (10.0-50.0); Monocytes # (auto) 0.4 10 ^3/uL (0-1.3); Neutrophils # (auto) 16.2 10 ^3/uL (1.6-8.6)
[2020-08-21 06:26] LABS: Basophils % (auto) 0.2 % (0.0-2.0); Hematocrit 37.4 % (36.0-46.0); Hemoglobin 12.1 g/dL (12.2-16.2); Mean Corpuscular Hemoglobin 26.4 pg (28.0-32.0); Mean Corpuscular Hgb Conc. 32.5 g/dL (32.0-36.0); Mean Corpuscular Volume 81.3 fL (80.0-100.0); Monocytes % (auto) 2.2 % (0.0-12.0); Neutrophils % (auto) 95.5 % (37.0-80.0); Platelet Count (auto) 71 10^3/uL (140-450); Red Cell Distribution Width 16.2 % (11.8-14.3)
[2020-08-21] MEDS: LEVOTHYROXINE SODIUM 100 MCG TAB PO SCH (06:34)
[2020-08-21] MEDS: ACCU-CHEK COMFORT CURVE STRIP VI SCH ×4 (06:35→22:23)
[2020-08-21] MEDS: InsuLIN REG 1unit/0.01ml Soln (100units/ml) SC SCH ×4 (06:36→22:29)
[2020-08-21 06:38] LABS: Potassium 3.6 mmol/L (3.5-5.1)
[2020-08-21 06:47] LABS: BUN/Creatinine Ratio 26.8
--- NOTE | 2020-08-21 07:00 | NUR ---
Patient Received Patient report received from night nurse.
--- NOTE | 2020-08-21 09:00 | NUR ---
PATIENT ABDOMEN MEASURED FOR C.T. PROCEDURE THIS AM - PATIENT GIRTH MEASURES 36 INCHES WHICH EXCEEDS THE C.T. SCANNER GANTRY. LIQUID YEAST SUPERVISOR AND U.S. TECH INFORMED PATIENT'S RN RENETTA. CALL PLACED TO DR PATEL.
[2020-08-21] MEDS: FAMOTIDINE 20 MG TAB PO SCH ×2 (09:45→22:23)
[2020-08-21] MEDS: METOPROLOL TARTRATE 25 MG TAB PO SCH ×2 (09:51→22:23)
[2020-08-21] MEDS: levoFLOXacin 750MG 150 ML IV SCH (10:06)
--- NOTE | 2020-08-21 10:24 | NUR ---
DR PATEL RETURNS PHONE CALL - INFORMED OF INABILITY TO PLACE PERCUTANEOUS NEPHROSTOMY TUBE DUE WIDE GIRTH - STATES HE WILL CALL UROLOGY- FABI JACKSON INFORMED. WILL DISCONTINUE ORDER. FABI JACKSON INFORMED.
[2020-08-21] MEDS: methylPREDNISolone SOD SUCC 40 MG/ML VL IV SCH (12:49)
[2020-08-21] MEDS: diphenhdrAMINE HCL 50 MG/1 ML VL IV SCH (12:50)
[2020-08-21] MEDS: ACETAMINOPHEN 325 MG TAB PO SCH (12:52)
--- NOTE | 2020-08-21 13:10 | NUR ---
IV removal IV DC'd with clean sterile technique, catheter fully intact. Pressure dressing applied to site. Patient tolerated well.
--- NOTE | 2020-08-21 13:22 | NUR ---
Provider at bedside Dr. Harmon is at bedside talking with patient.
--- NOTE | 2020-08-21 13:40 | NUR ---
IV insertion IV access obtained, via clean sterile technique by inserting 20 gauge catheter at right forearm after 0 attempt(s). IV secured properly. No trauma to site. Patient tolerated well.
[2020-08-21] MEDS: IV IMMUNE GLOBULIN(IVIG) 10% 20G/200ML IV SCH (14:29)
--- NOTE | 2020-08-21 14:30 | NUR ---
IV SODIUM BICARB NON-ADMIN IV IMMUNE GLOBULIN CURRENTLY RUNNING, PATIENT ONLY HAS ONE IV AND REFUSES 2ND IV, PATIENT IS A HARD STICK. ONCE CURRENT MEDICATION ADMINISTRATION IS COMPLETE, WILL SWITCH PATIENT TO ORDERED SODIUM BICARBONATE FLUIDS
--- NOTE | 2020-08-21 16:19 | NUR ---
SCD's APPLIED BILATERALLY TO LOWER EXTREMITIES
--- NOTE | 2020-08-21 16:29 | NUR ---
Assessment This is a 55-year-old female, who is alert and oriented. Patient has history of diabetes type 2 diabetes Patient cognitive abilities are intact. Patient states that she can do all ADLs independently and uses a walker for assistance. Patient is unemployed and declines to give income resources. Patient lives alone and will return home post discharge. Patient brother (Jesus [phone]) will provide transportation post discharge. Patient is not receptive to receive Advance Directive. Discharge planning: Patient has supplies and will resume diabetic home care. Additional post discharge needs are yet to be determine at this moment. Addendum: 08/21/20 at 1630 by ANGEL LAGOS Amended: Links added.
--- NOTE | 2020-08-21 18:42 | NUR ---
PATIENT ROUNDS PATIENT SITTING UP IN CHAIR EATING DINNER. NO DISTRESS NOTED. PATIENT JUNE PAIN AT THIS TIME. WILL ENDORSE CARE TO CRYPTOGRAPHIC VULNERABILITY ANALYST RN.
--- NOTE | 2020-08-21 19:45 | NUR ---
RECEIVED PATIENT FROM DAY SHIFT RN. PATIENT SITTING ON THE SIDE OF THE BED. NO S/S OF DISTRESS NOTED. DENIED PAIN AT THIS TIME. VILLANUEVA CATH IN PLACE DRAINING TO GRAVITY. SCD IS ON. POC INSTRUCTED AND ENCOURAGED PATIENT TO CALL FOR ESCROW MANAGER IF NEEDED. BED IN LOWEST LOCKED POSITION WITH SIDE RAILS UP X 2. CALL DOLAN WITHIN REACH. CONTINUE TO MONITOR FOR CHANGES Q1H AND PRN.
--- NOTE | 2020-08-21 23:05 | NUR ---
BED BATH DONE. PATIENT TOLERATED WELL. CONTINUE TO MONITOR
[2020-08-22] MEDS: SODIUM BICARBONATE 50ML VIAL 100 ML in SOD CHL 0.45% 1,000 ML IV SCH ×2 (04:06→12:35)
[2020-08-22 05:16] VITALS: BP 106/60
[2020-08-22 06:05] LABS: Eosinophils # (auto) 0 10 ^3/uL (0-0.8); Lymphocytes # (auto) 0.6 10 ^3/uL (0.4-5.4); Mean Corpuscular Hemoglobin 26.3 pg (28.0-32.0); Nucleated Red Blood Cells % 0.1 %; Platelet Count (auto) 65 10^3/uL (140-450)
[2020-08-22 06:10] LABS: Basophils # (auto) 0 10 ^3/uL (0-0.2); Basophils % (auto) 0.3 % (0.0-2.0); Eosinophils % (auto) 0.4 % (0.0-7.0); Hematocrit 34.8 % (36.0-46.0); Hemoglobin 11.2 g/dL (12.2-16.2); Lymphocytes % (auto) 5.5 % (10.0-50.0); Mean Corpuscular Hgb Conc. 32.2 g/dL (32.0-36.0); Mean Corpuscular Volume 81.6 fL (80.0-100.0); Monocytes # (auto) 0.6 10 ^3/uL (0-1.3); Monocytes % (auto) 4.9 % (0.0-12.0); Neutrophils # (auto) 10.5 10 ^3/uL (1.6-8.6); Neutrophils % (auto) 88.9 % (37.0-80.0); Red Blood Cells 4.26 10^6/uL (4.0-5.20); Red Cell Distribution Width 16.2 % (11.8-14.3); White Blood Cell 11.8 10^3/uL (4.4-10.8)
[2020-08-22 06:25] LABS: Potassium 3.8 mmol/L (3.5-5.1)
[2020-08-22] MEDS: LEVOTHYROXINE SODIUM 100 MCG TAB PO SCH (06:41)
[2020-08-22] MEDS: InsuLIN REG 1unit/0.01ml Soln (100units/ml) SC SCH ×4 (06:42→22:16)
[2020-08-22] MEDS: ACCU-CHEK COMFORT CURVE STRIP VI SCH ×4 (06:42→22:18)
[2020-08-22 06:44] LABS: Albumin 1.6 g/dL (3.4-5.0); BUN/Creatinine Ratio 30.4; Calcium 6.6 mg/dL (8.5-10.1); Total Protein 6.3 g/dL (6.4-8.2)
[2020-08-22 09:00] VITALS: BP 115/67
[2020-08-22] MEDS: levoFLOXacin 750MG 150 ML IV SCH (10:42)
[2020-08-22] MEDS: METOPROLOL TARTRATE 25 MG TAB PO SCH ×3 (10:42→22:17)
[2020-08-22] MEDS: FAMOTIDINE 20 MG TAB PO SCH ×2 (10:42→22:17)
--- NOTE | 2020-08-22 11:03 | NUR ---
I faxed higher level of care order/clinical packet to [facility] and [facility].
--- NOTE | 2020-08-22 12:04 | NUR ---
I spoke with Talita at the [facility]-she received transfer order/packet-she will reach out to their MD to have him call Dr. Castle-then she will let me know if they are able to accept this patient. She did say that they require a more recent COVID test (within the last 5 days) prior to accepting patient. I spoke with and asked him to order a new COVID PCR test.
--- NOTE | 2020-08-22 12:40 | NUR ---
I spoke with [facility] [employer] Elisabeth-she provided me with facility authorization number [id number], and transportation authorization number [id number]. She said I can also reach out to [facility], [facility] and [facility].
--- NOTE | 2020-08-22 12:49 | NUR ---
I called [facility] ([phone]) and spoke with Gita, provided [facility] authorization number [id number] them on will call pending transfer to higher level of care.
--- NOTE | 2020-08-22 12:51 | NUR ---
Deion SCHMID AT BEDSIDE. INFORMED OF PATIENT STATUS AND OF MOST RECENT CT ABDOMEN. INFORMED THAT NEW COVID SWAB WILL BE SENT.
[2020-08-22 13:00] VITALS: BP 114/44
--- NOTE | 2020-08-22 13:02 | NUR ---
COVID SWAB COLLECTED AND WALKED TO LAB BY FABI SAHA.
--- NOTE | 2020-08-22 13:03 | NUR ---
I called [facility] [phone] and spoke with Amparo, provided her with contact information for Dr. Castle and the nurse's station. Faxed transfer order and clinical packet to [facility] and [facility]. I called [facility] [phone] and left message asking about bed availability.
--- NOTE | 2020-08-22 16:20 | NUR ---
PATIENT SOB. RESPIRATIONS LABORED AND TACHYPNEIC. OXYGEN SATURATIONS AT 92% ON 4L NC. Deion SUBRAMANIAN.
--- NOTE | 2020-08-22 16:25 | NUR ---
RECEIVED POSITIVE COVID RESULT.
--- NOTE | 2020-08-22 16:32 | NUR ---
SPOKE WITH Deion SCHMID AND INFORMED OF PATIENTS ONSET OF SYMPTOMS. INFORMED OF PATIENTS POSITIVE COVID RESULTS. RECEIVED NEW ORDERS. SEE EMR FOR ALL NEW ORDERS.
--- NOTE | 2020-08-22 16:34 | NUR ---
RT AT BEDSIDE FOR ABG. RT BOY AWARE OF PATIENTS POSITIVE COVID RESULTS.
[2020-08-22 17:00] VITALS: BP 125/63
[2020-08-22] MEDS ORDERED: DexAMETHasone SOD PHOS 10MG/1ML VIAL INJ IV ONE (17:00)
[2020-08-22] MEDS ORDERED: DEXTROSE (50%) 50ML SYRG IV PRN (17:00)
[2020-08-22] MEDS ORDERED: FUROSEMIDE 20 MG/2 ML VIAL IV ONE (17:00)
--- NOTE | 2020-08-22 17:02 | NUR ---
CALLED AND SPOKE TO Deion SCHMID. INFORMED OF PATIENT NEW ABG RESULTS. RECEIVED ORDER FOR REMDESIVIR AND AGGRESSIVE ACHS SCALE. SEE EMAR FOR ORDERS.
--- NOTE | 2020-08-22 17:55 | NUR ---
report report received form FABI jaquez.
--- NOTE | 2020-08-22 17:56 | NUR ---
CALLED AND GAVE REPORT TO FABI CARUSO.
--- NOTE | 2020-08-22 18:00 | NUR ---
FAXED AND SENT REMDESIVIR CONSENT VIA BULLET TO PHARMACY.
--- NOTE | 2020-08-22 18:32 | NUR ---
TRANSFERRED TO ROOM 248 WITH TELEMETRY MONITORING. CALLED TELE OFFICE TO INFORM OF ROOM TRANSFER.
[2020-08-22 18:35] VITALS: BP 136/65
--- NOTE | 2020-08-22 18:35 | NUR ---
patient on unit patient brought on unit via bed with 10l o2 via simple mask. Updated patient on plan of care and oriented patient to room and primary RN. Placed patient on bed side oxygen. Will continue to monitor.
[2020-08-22] MEDS: ACETAMINOPHEN 325 MG TAB PO PRN (18:48)
--- NOTE | 2020-08-22 19:34 | NUR ---
end of shift note Endorsed care to NOC FABI Cortes. No s/s of distress noted.
[2020-08-22] MEDS ORDERED: REMDESIVIR 200 MG in NS 210ml LOADING DOSE ADULT IV ONE ×2 (20:00→21:00)
--- NOTE | 2020-08-22 21:13 | NUR ---
STARTED REMDESIVIR PRE VITAL SIGNS T-97.8, O2-99% B/P-115/60, RR-18,HR-92
[2020-08-22 22:00] VITALS: BP 115/60
[2020-08-22] MEDS ORDERED: INSULIN LANTUS (GLARGINE) 1 /0.01ml (100units/ml) SC SCH (22:00)
--- NOTE | 2020-08-23 00:59 | NUR ---
REMDESIVIR INFUSION ENDED REMDESIVIR INFUSION ENDED AT THIS TIME. PT TOLERATED WELL,NO NAUSEA/VOMIT/FEVER/CHILLS REPORTED. VITAL SIGNS 15 MIN AFTER ADMINISTRATION: T-97.9, O2-93% B/P-124/65, RR-18,HR-88 VITAL SIGNS POST INFUSION: T-97.4, O2-94% B/P-128/63, RR-18,HR-91 Addendum: 08/23/20 at 0105 by DENISE WEBSTER RN THIS IS FOR THE TIME 2213, 08/22/20
[2020-08-23 05:00] VITALS: BP 139/66
[2020-08-23] MEDS: InsuLIN REG 1unit/0.01ml Soln (100units/ml) SC SCH ×4 (05:35→22:03)
[2020-08-23] MEDS: LEVOTHYROXINE SODIUM 100 MCG TAB PO SCH (05:37)
[2020-08-23] MEDS: ACCU-CHEK COMFORT CURVE STRIP VI SCH ×4 (05:37→22:04)
--- NOTE | 2020-08-23 06:49 | NUR ---
END OF SHIFT NOTE WILL ENDORSE CARE TO DAY SHIFT RN.PT A0X4, NO S/S OF DISTRESS OR SOB
--- NOTE | 2020-08-23 07:45 | NUR ---
Opening Shift Note Assumed care of patient, awake and alert. No S/S of distress or pain. Patient is sitting at the edge of the bed with mask off, sob noted. Re-placed simple mask on at 9L. Instructed on POC and to call for assist PRN. Bed at lowest locked position and call light within reach. Will continue to monitor for changes Q1hr and PRN.
[2020-08-23 08:00] VITALS: BP 112/62
--- NOTE | 2020-08-23 08:35 | NUR ---
Assisted patient with eating. complete bed linen change with the help of TABITHA Durant. Patient back in bed on right side. will continue to monitor.
--- NOTE | 2020-08-23 10:02 | NUR ---
I called Dr. Castle and left message-wanting to speak with him regarding plan of care for this patient-higher level of care order placed yesterday-patient now COVID + with increased oxygen requirements. Awaiting return call. Attempted to speak with patient's nurse regarding the plan of care-and to discuss whether or not patient is stable for transfer-she was not available.
--- NOTE | 2020-08-23 10:09 | NUR ---
I spoke with nurse Teri regarding the plan of care for patient/stability for transfer-per nurse she is short of breath with minimal exertion-if she speaks with MD she will call me regarding patient's stability to transfer.
[2020-08-23] MEDS: POTASSIUM CHL 10 Meq TABLET PO SCH ×2 (10:20→22:05)
[2020-08-23] MEDS: levoFLOXacin 750MG 150 ML IV SCH (10:20)
[2020-08-23] MEDS: FAMOTIDINE 20 MG TAB PO SCH ×2 (10:21→22:04)
[2020-08-23] MEDS: METOPROLOL TARTRATE 25 MG TAB PO SCH ×2 (10:21→22:05)
[2020-08-23 12:00] VITALS: BP 127/74
--- NOTE | 2020-08-23 14:57 | NUR ---
Nutrition Followup Notes Pt wt is 164.9 kg Pt is with a CCHO 75g diet, appetite is fair aeb ave 67% PO intake over 3 meals per RN doc. Suggest a Renal Specific 130g protein,2gNa,K2,low phos/CCHO 75g diet d/t pt with elev RFTs. Est Energy needs: 5905-9530 kcals (12-15 kcal/kgBW) Est Protein needs: 130-163 gms/day (0.8-1.0 gm/kgBW) Will continue to monitor and reassess prn. LABS: GLUC 209 H, A1c 9.4 H, CA 6.6 L, ALB 1.6 L, BUN 34 H, CREAT 1.12 H, GFR 53 H GI: Pt had 2 BMs today per RN doc BS: 21 low risk. Refer to wound assessment report for further details. PES: 1) Obesity r/t energy intake in excess of energy needs aeb BMI of 56.2 kg/m2 2) Altered nutrition related lab values r/t current/chronic medical condition aeb elev RFTs, hyperglycemia, hypoalbuminemia Malnutrition related to morbid Weight 200% of ideal wt Malnutrition related to morbid obesity Yes Comments Will continue to monitor PO status, skin status, pertinent labs and weight trends. Will f/u in 3-5 days 1) Continue to closely monitor pt PO intake to meet at least 75% of meals 2) Suggest a Renal Specific 130g protein,2gNa,K2,low phos/CCHO 75g diet d/t pt with elev RFTs. 3) If albumin continues trending down with improved RFTs, consider Prostat 1 pkt BID 4) Continue current plan of care
[2020-08-23 17:00] VITALS: BP 115/86
--- NOTE | 2020-08-23 17:20 | NUR ---
STARTED REMDESIVIR PRE VITAL SIGNS T-98.6, O2-93% B/P-115/86, RR-22,HR-81 Addendum: 08/23/20 at 1812 by Teri Lindo RN *1752 15 minutes VS BP 123/84mmhg, HR 91bpm. No s/s of distress/sob noted/stated. Will continue to monitor PRN.
[2020-08-23] MEDS: FUROSEMIDE 20 MG/2 ML VIAL IV SCH (17:22)
[2020-08-23] MEDS: REMDESIVIR 100mg in NS 230ml DAILYx4DAYS (NO VENT) IV SCH (17:23)
--- NOTE | 2020-08-23 18:36 | NUR ---
END OF REMDESIVIR INFUSION BP 122/64, HR, 89BPM. NO s/s of distress/noted/stated. patient tolerated well. Will continue to monitor PRN.
--- NOTE | 2020-08-23 19:30 | NUR ---
END OF SHIFT NOTE WILL ENDORSE CARE TO NOC RN. PATIENT ON 8L OXYMIZER. A0X4, NO S/S OF DISTRESS OR SOB NOTED/STATED. BED AT LOWEST LOCKED POSITION AND MITCHELL LIGHT WITHIN REACH.
[2020-08-23 22:00] VITALS: BP 121/70
[2020-08-23] MEDS: INSULIN LANTUS (GLARGINE) 1 /0.01ml (100units/ml) SC SCH (22:04)
[2020-08-24 05:00] VITALS: BP 125/70
[2020-08-24] MEDS: InsuLIN REG 1unit/0.01ml Soln (100units/ml) SC SCH ×4 (05:39→22:36)
[2020-08-24] MEDS: ACCU-CHEK COMFORT CURVE STRIP VI SCH ×4 (05:42→22:38)
[2020-08-24] MEDS: LEVOTHYROXINE SODIUM 100 MCG TAB PO SCH (05:42)
[2020-08-24] MEDS: FUROSEMIDE 20 MG/2 ML VIAL IV SCH ×2 (05:43→18:00)
--- NOTE | 2020-08-24 06:48 | NUR ---
END OF SHIFT NOTE WILL ENDORSE CARE TO DAY SHIFT RN.PT A0X4, NO S/S OF DISTRESS OR SOB
[2020-08-24 07:30] LABS: Basophils # (auto) 0 10 ^3/uL (0-0.2); Eosinophils # (auto) 0 10 ^3/uL (0-0.8); Eosinophils % (auto) 0.1 % (0.0-7.0); Mean Corpuscular Hemoglobin 26.5 pg (28.0-32.0)
[2020-08-24 07:33] LABS: Basophils % (auto) 0.3 % (0.0-2.0); Hematocrit 36.5 % (36.0-46.0); Lymphocytes # (auto) 0.3 10 ^3/uL (0.4-5.4); Mean Corpuscular Hgb Conc. 32.8 g/dL (32.0-36.0); Mean Corpuscular Volume 80.8 fL (80.0-100.0); Monocytes # (auto) 0.5 10 ^3/uL (0-1.3); Monocytes % (auto) 4.7 % (0.0-12.0); Neutrophils # (auto) 10.4 10 ^3/uL (1.6-8.6); Neutrophils % (auto) 91.9 % (37.0-80.0); Nucleated Red Blood Cells % 0.1 %; Platelet Count (auto) 97 10^3/uL (140-450); Red Blood Cells 4.52 10^6/uL (4.0-5.20); Red Cell Distribution Width 16.2 % (11.8-14.3); White Blood Cell 11.3 10^3/uL (4.4-10.8)
[2020-08-24 07:54] LABS: Albumin 1.8 g/dL (3.4-5.0); Calcium 6.9 mg/dL (8.5-10.1)
[2020-08-24 08:00] VITALS: BP 119/68
[2020-08-24 08:05] LABS: BUN/Creatinine Ratio 17.9; Bilirubin, Total 1.2 mg/dL (0.2-1.0); CRP High Sensitivity 12.9 mg/dL (< 0.3); Total Protein 6.9 g/dL (6.4-8.2)
--- NOTE | 2020-08-24 08:10 | NUR ---
opening shift note patient is awake and alert, Oxymizer was completely off, oxygen saturations were at 80%, readjusted patients mask, oxygen saturations are going up, currently at 90%. Educated patient on importance of keeping mask on. patient states, "i don't know how, help me". Education provided. Bed at lowest locked position and call light within reach. Will continue to monitor PRN.
[2020-08-24 09:00] VITALS: BP 119/68
[2020-08-24] MEDS: DexAMETHasone SOD PHOS 10MG/1ML VIAL INJ IV SCH (10:17)
[2020-08-24] MEDS: POTASSIUM CHL 10 Meq TABLET PO SCH ×2 (10:17→22:21)
[2020-08-24] MEDS: levoFLOXacin 750MG 150 ML IV SCH (10:17)
[2020-08-24] MEDS: METOPROLOL TARTRATE 25 MG TAB PO SCH ×2 (10:19→22:33)
[2020-08-24] MEDS: FAMOTIDINE 20 MG TAB PO SCH ×2 (10:19→22:21)
--- NOTE | 2020-08-24 11:00 | NUR ---
Opening Shift Note Assumed patient care from FABI Lantigua.
--- NOTE | 2020-08-24 11:01 | NUR ---
Care endorsed to Jaycee DUNLAP.
--- NOTE | 2020-08-24 11:40 | NUR ---
RT Called RT due to SpO2 being in low 70s% after session with PT. RT at bedside; placed patient on simple mask until SpO2 increased to 94%, then placed back on oxymizer 15L. SpO2 maintained at 94% at this time.
--- NOTE | 2020-08-24 12:00 | NUR ---
at Bedside Dr. Castle at bedside discussing plan of care with patient. Addendum: 08/24/20 at 1316 by ADRIAN RUIZ RN RN MD aware of decrease in SpO2. Addendum: 08/24/20 at 1912 by ADRIAN RUIZ RN RN MD aware of Ddimer levels.
--- NOTE | 2020-08-24 12:10 | NUR ---
IS IS at bedside. Patient educated on use and benefits; patient able to return demonstration. Only able to reach 500 marker at this time.
[2020-08-24 12:47] VITALS: BP 113/56
--- NOTE | 2020-08-24 13:00 | NUR ---
SpO2 Patient saturating at 97-98% on 15L oxymizer. Patient titrated down to 10L, currently SpO2 at 97%. Patient requesting to remove pulse oximeter. Patient educated on need for continued O2 monitoring, patient verbalized understanding. Will continue to monitor q1hr and PRN.
[2020-08-24] MEDS: REMDESIVIR 100mg in NS 230ml DAILYx4DAYS (NO VENT) IV SCH (17:24)
[2020-08-24 17:27] VITALS: BP 109/51
--- NOTE | 2020-08-24 17:30 | NUR ---
Remdesivir Medication administration started. Starting BP 116/65 HR 81 15minutes reassessed: 106/69 HR 83 Will continue to monitor q1hr and PRN.
--- NOTE | 2020-08-24 17:35 | NUR ---
IS Patient encouraged to continue using IS. Patient only able to get to 500 marker x10 tries at this time. Will continue to monitor q1hr and PRN. Addendum: 08/24/20 at 1852 by ADRIAN RUIZ RN RN Patient on 10L Oxymizer at this time. Respirations even and unlabored. Will continue to monitor.
--- NOTE | 2020-08-24 18:30 | NUR ---
Remdesivir End BP 101/49 HR 72
--- NOTE | 2020-08-24 19:40 | NUR ---
Closing Shift Report given to NOC RN. Patient currently laying bed, no signs of distress at this time on 10L oxymizer 95%. Respirations even and unlabored.
--- NOTE | 2020-08-24 20:10 | NUR ---
Opening Shift Note Assumed care of patient, awake and alert. No S/S of distress/SOB or pain. Instructed on POC and to call for assist PRN, will continue to monitor for changes Q1hr and PRN. bed in low position and call light within reach
[2020-08-24 22:00] VITALS: BP 109/58
[2020-08-24] MEDS: INSULIN LANTUS (GLARGINE) 1 /0.01ml (100units/ml) SC SCH (22:35)
[2020-08-25] VITALS (7 sets, daily range): BP systolic 100–144; BP diastolic 50–68
[2020-08-25] MEDS: LEVOTHYROXINE SODIUM 100 MCG TAB PO SCH (06:30)
[2020-08-25] MEDS: FUROSEMIDE 20 MG/2 ML VIAL IV SCH ×2 (06:30→17:51)
--- NOTE | 2020-08-25 06:40 | NUR ---
patient rounds patient resting in bed denies sob distress or pain. iv is intact and patent. saucedo catheter patent and draining. oxygen saturation 92% via 10l Oxymizer. bed in low position and call light within reach
--- NOTE | 2020-08-25 06:40 | NUR ---
patient rounds patient resting in bed denies sob distress or pain. iv is intact and patent ox saturation 92% via 10l Oxymizer. bed in low position and call light within reach
[2020-08-25] MEDS: ACCU-CHEK COMFORT CURVE STRIP VI SCH ×4 (06:42→22:22)
[2020-08-25] MEDS: InsuLIN REG 1unit/0.01ml Soln (100units/ml) SC SCH ×4 (06:42→22:00)
--- NOTE | 2020-08-25 07:05 | NUR ---
REPORT GIVEN TO DAYSHIFT RN PATIENT DENIES SOB DISTRESS OR PAIN
[2020-08-25 08:58] LABS: Albumin 1.5 g/dL (3.4-5.0); Calcium 6.7 mg/dL (8.5-10.1); Potassium 4.2 mmol/L (3.5-5.1)
[2020-08-25 09:02] LABS: BUN/Creatinine Ratio 26.8; Bilirubin, Total 0.6 mg/dL (0.2-1.0)
[2020-08-25] MEDS: METOPROLOL TARTRATE 25 MG TAB PO SCH ×2 (10:00→22:41)
[2020-08-25] MEDS: DexAMETHasone SOD PHOS 10MG/1ML VIAL INJ IV SCH (10:22)
[2020-08-25] MEDS: levoFLOXacin 750MG 150 ML IV SCH (10:22)
[2020-08-25] MEDS: POTASSIUM CHL 10 Meq TABLET PO SCH ×2 (10:22→22:41)
[2020-08-25] MEDS: FAMOTIDINE 20 MG TAB PO SCH ×2 (10:23→22:41)
[2020-08-25 10:49] LABS: Basophils # (auto) 0 10 ^3/uL (0-0.2); Eosinophils # (auto) 0 10 ^3/uL (0-0.8); Eosinophils % (auto) 0.2 % (0.0-7.0); Lymphocytes # (auto) 0.6 10 ^3/uL (0.4-5.4); Monocytes # (auto) 0.5 10 ^3/uL (0-1.3); Neutrophils # (auto) 4.2 10 ^3/uL (1.6-8.6); White Blood Cell 5.3 10^3/uL (4.4-10.8)
[2020-08-25 10:55] LABS: Basophils % (auto) 0.4 % (0.0-2.0); Hematocrit 34.5 % (36.0-46.0); Hemoglobin 11.2 g/dL (12.2-16.2); Lymphocytes % (auto) 11.2 % (10.0-50.0); Mean Corpuscular Hemoglobin 26.8 pg (28.0-32.0); Mean Corpuscular Hgb Conc. 32.5 g/dL (32.0-36.0); Mean Corpuscular Volume 82.4 fL (80.0-100.0); Monocytes % (auto) 9.3 % (0.0-12.0); Neutrophils % (auto) 78.9 % (37.0-80.0); Nucleated Red Blood Cells % 0.1 %; Platelet Count (auto) 87 10^3/uL (140-450); Red Blood Cells 4.19 10^6/uL (4.0-5.20); Red Cell Distribution Width 16.6 % (11.8-14.3)
[2020-08-25] MEDS: REMDESIVIR 100mg in NS 230ml DAILYx4DAYS (NO VENT) IV SCH (16:48)
[2020-08-25] MEDS ORDERED: ALBUTEROL SULF HFA 90MCG INH 200DOSE IN PRN (20:45)
[2020-08-25] MEDS: INSULIN LANTUS (GLARGINE) 1 /0.01ml (100units/ml) SC SCH (22:00)
--- NOTE | 2020-08-25 22:20 | NUR ---
MD Orders Patient c/o coughing and anxiety. Notified Dr. Carranza about patient's concerned. MD ordered Xanax 0.25 mg PO PRN q8hr, and Promethazine with Codeine 5mL PO PRN q6hrs. Repeated orders verified.
[2020-08-25] MEDS ORDERED: ALPRAZolam 0.25 MG TAB PO PRN (22:30)
[2020-08-25] MEDS: CHOLECALCIFEROL (VITD3) 2,000 UNIT CAP PO SCH (22:40)
[2020-08-25] MEDS: ZINC SULFATE 220mg CAP or TAB PO SCH (22:40)
[2020-08-25] MEDS: ASCORBIC ACID 500 MG TAB PO SCH (22:40)
[2020-08-25] MEDS: PROMETHAZINE W/CODEINE 5 ML ORAL SYRUP PO PRN (22:41)
[2020-08-26] VITALS (7 sets, daily range): BP systolic 94–136; BP diastolic 55–70
[2020-08-26] MEDS: ACCU-CHEK COMFORT CURVE STRIP VI SCH ×4 (06:28→21:34)
[2020-08-26] MEDS: FUROSEMIDE 20 MG/2 ML VIAL IV SCH ×2 (06:29→18:54)
[2020-08-26] MEDS: InsuLIN REG 1unit/0.01ml Soln (100units/ml) SC SCH ×4 (06:29→21:39)
[2020-08-26] MEDS: LEVOTHYROXINE SODIUM 100 MCG TAB PO SCH (06:30)
[2020-08-26 07:17] LABS: Basophils # (auto) 0 10 ^3/uL (0-0.2); Basophils % (auto) 0.2 % (0.0-2.0); Eosinophils # (auto) 0.1 10 ^3/uL (0-0.8); Eosinophils % (auto) 1.4 % (0.0-7.0); Hemoglobin 12.3 g/dL (12.2-16.2); Lymphocytes # (auto) 0.5 10 ^3/uL (0.4-5.4); Mean Corpuscular Hemoglobin 26.3 pg (28.0-32.0); Monocytes # (auto) 0.5 10 ^3/uL (0-1.3); Neutrophils % (auto) 87.7 % (37.0-80.0)
[2020-08-26 07:21] LABS: Lymphocytes % (auto) 5.6 % (10.0-50.0); Mean Corpuscular Hgb Conc. 32.2 g/dL (32.0-36.0); Mean Corpuscular Volume 81.7 fL (80.0-100.0); Monocytes % (auto) 5.1 % (0.0-12.0); Neutrophils # (auto) 8.2 10 ^3/uL (1.6-8.6); Nucleated Red Blood Cells % 0.1 %; Platelet Count (auto) 127 10^3/uL (140-450); Red Blood Cells 4.65 10^6/uL (4.0-5.20); Red Cell Distribution Width 16.1 % (11.8-14.3); White Blood Cell 9.3 10^3/uL (4.4-10.8)
--- NOTE | 2020-08-26 07:25 | NUR ---
Respiratory note: ASSESSED PT FOR PRN TX, PT WAS AWAKE, NO RESP DISTRESS NOTED. HR 87,RR 18, SPO2 92% ON 10L OXYMIZER. NO MDI AT BEDSIDE. WILL GET FROM PHARMACY
[2020-08-26 07:34] LABS: Potassium 4.3 mmol/L (3.5-5.1)
[2020-08-26 07:39] LABS: Albumin 1.7 g/dL (3.4-5.0); BUN/Creatinine Ratio 19.1; Calcium 6.6 mg/dL (8.5-10.1)
--- NOTE | 2020-08-26 07:40 | NUR ---
OPENING NOTE ASSUMED CARE OF PT. ALERT AND ORIENTED. NO S/S OF SOB/DISTRESS NOTED. BED SET TO LOWEST POSITION/LOCKED. BEDSIDE RAILS UP X2, CALL LIGHT WITHIN REACH. INSTRUCTED PT TO CALL FOR ASSISTANCE. UPDATED ON POC. PT VERBALIZED UNDERSTANDING. WILL CONTINUE TO MONITOR Q 1HR AND PRN FOR CHANGES.
[2020-08-26 07:52] LABS: Bilirubin, Total 0.6 mg/dL (0.2-1.0); Total Protein 6.2 g/dL (6.4-8.2)
[2020-08-26] MEDS: ASCORBIC ACID 500 MG TAB PO SCH (10:00)
[2020-08-26] MEDS: levoFLOXacin 750MG 150 ML IV SCH (10:25)
[2020-08-26] MEDS: ZINC SULFATE 220mg CAP or TAB PO SCH (10:25)
[2020-08-26] MEDS: POTASSIUM CHL 10 Meq TABLET PO SCH ×2 (10:25→21:34)
[2020-08-26] MEDS: DexAMETHasone SOD PHOS 10MG/1ML VIAL INJ IV SCH (10:25)
[2020-08-26] MEDS: FAMOTIDINE 20 MG TAB PO SCH ×2 (10:26→21:34)
[2020-08-26] MEDS: METOPROLOL TARTRATE 25 MG TAB PO SCH ×2 (10:26→21:34)
[2020-08-26] MEDS: CHOLECALCIFEROL (VITD3) 2,000 UNIT CAP PO SCH (10:26)
--- NOTE | 2020-08-26 12:59 | NUR ---
Nutrition Followup Notes Wt: 163.8 kg Pt is in COVID isolation no distress noted per RN . pt with a CCHO 60 gm diet with adequate PO of 75% x 6 per RN doc Est Energy needs: 2388-3536 kcals (12-15 kcal/kgBW), Est Protein needs: 130-163 gms/day (0.8-1.0 gm/kgBW). Will continue to monitor and reassess prn. LABS: CA 6.6 L, ALB 1.7 L GI: Pt had 1 BMs today per RN doc BS: 20 low risk. Refer to wound assessment report for further details. PES: 1) Obesity r/t energy intake in excess of energy needs aeb BMI of 56.2 kg/m2 2) Altered nutrition related lab values r/t current/chronic medical condition aeb elev RFTs, hyperglycemia, hypoalbuminemia Comments: Will continue to monitor PO status, skin status, pertinent labs and weight trends. Will f/u in 3-5 days 1) consider Prostat 1 pkt BID. 2) refer to CDE on DC. 3) Continue current plan of care
[2020-08-26] MEDS: REMDESIVIR 100mg in NS 230ml DAILYx4DAYS (NO VENT) IV SCH (16:45)
--- NOTE | 2020-08-26 16:45 | NUR ---
REMDESIVIR PRE-INFUSION VS BP: 97/55 MMHG HR: 70 BPM SPO2: 99% WILL CONTINUE TO MONITOR.
--- NOTE | 2020-08-26 17:00 | NUR ---
REMDESIVIR 15 MIN-INFUSION VS BP: 105/52 MMHG HR: 76 BPM SPO2: 97% WILL CONTINUE TO MONITOR.
--- NOTE | 2020-08-26 17:50 | NUR ---
REMDESIVIR POST-INFUSION VS BP: 110/60 MMHG HR: 100 BPM SPO2: 96% NO S/S OF SOB/DISTRESS NOTED. WILL CONTINUE TO MONITOR.
--- NOTE | 2020-08-26 20:40 | NUR ---
at Bedside Dr. Norberto Barcenas at bedside. ordered for patient to be titrated down to nasal cannula. Dr. Barcenas order for a repeat imaging per urology. Will endorse information to dayshift nurse.
--- NOTE | 2020-08-26 21:00 | NUR ---
Oxygen Titration Patient titrated to 6L nasal cannula. Patient sating at 92%. Will continue to monitor.
[2020-08-26] MEDS: INSULIN LANTUS (GLARGINE) 1 /0.01ml (100units/ml) SC SCH (21:35)
[2020-08-26] MEDS: PROMETHAZINE W/CODEINE 5 ML ORAL SYRUP PO PRN (21:39)
[2020-08-27 05:00] VITALS: BP 125/68
[2020-08-27] MEDS: LEVOTHYROXINE SODIUM 100 MCG TAB PO SCH (06:29)
[2020-08-27] MEDS: InsuLIN REG 1unit/0.01ml Soln (100units/ml) SC SCH ×4 (06:29→22:12)
[2020-08-27] MEDS: FUROSEMIDE 20 MG/2 ML VIAL IV SCH (06:29)
[2020-08-27] MEDS: ACCU-CHEK COMFORT CURVE STRIP VI SCH ×4 (06:30→22:09)
[2020-08-27 07:17] LABS: Basophils # (auto) 0 10 ^3/uL (0-0.2); Basophils % (auto) 0.3 % (0.0-2.0); Eosinophils # (auto) 0.1 10 ^3/uL (0-0.8); Eosinophils % (auto) 1.2 % (0.0-7.0); Hematocrit 34.6 % (36.0-46.0); Hemoglobin 11.5 g/dL (12.2-16.2); Lymphocytes # (auto) 0.8 10 ^3/uL (0.4-5.4); Lymphocytes % (auto) 10.1 % (10.0-50.0); Mean Corpuscular Hgb Conc. 33.3 g/dL (32.0-36.0); Mean Corpuscular Volume 81.3 fL (80.0-100.0); Monocytes # (auto) 0.5 10 ^3/uL (0-1.3); Monocytes % (auto) 6.5 % (0.0-12.0); Neutrophils # (auto) 6.3 10 ^3/uL (1.6-8.6); Neutrophils % (auto) 81.9 % (37.0-80.0); Platelet Count (auto) 170 10^3/uL (140-450); Red Blood Cells 4.26 10^6/uL (4.0-5.20); Red Cell Distribution Width 15.8 % (11.8-14.3); White Blood Cell 7.7 10^3/uL (4.4-10.8)
[2020-08-27 07:38] LABS: Albumin 1.7 g/dL (3.4-5.0); Calcium 6.5 mg/dL (8.5-10.1); Potassium 3.8 mmol/L (3.5-5.1)
[2020-08-27 07:47] LABS: Bilirubin, Total 0.7 mg/dL (0.2-1.0); Total Protein 6.7 g/dL (6.4-8.2)
[2020-08-27 09:00] VITALS: BP 107/55
[2020-08-27] MEDS: CHOLECALCIFEROL (VITD3) 2,000 UNIT CAP PO SCH (10:00)
[2020-08-27] MEDS: POTASSIUM CHL 10 Meq TABLET PO SCH (12:01)
[2020-08-27] MEDS: DexAMETHasone SOD PHOS 10MG/1ML VIAL INJ IV SCH (12:01)
[2020-08-27] MEDS: ZINC SULFATE 220mg CAP or TAB PO SCH (12:01)
[2020-08-27] MEDS: levoFLOXacin 750MG 150 ML IV SCH (12:01)
[2020-08-27] MEDS: FAMOTIDINE 20 MG TAB PO SCH ×2 (12:02→22:09)
[2020-08-27] MEDS: ASCORBIC ACID 500 MG TAB PO SCH (12:02)
[2020-08-27] MEDS: METOPROLOL TARTRATE 25 MG TAB PO SCH ×2 (12:05→22:00)
--- NOTE | 2020-08-27 12:51 | NUR ---
Call from Received call from Dr. Marvin Barcenas. requesting urology clearance and possible D/C home. Per MD if physical therapy recommends SNF placement then patient can go to SNF. Will follow through.
[2020-08-27 13:00] VITALS: BP 114/68
[2020-08-27] MEDS ORDERED: DEXA6TAB6 PO (13:48)
[2020-08-27] MEDS ORDERED: POTA-180 PO (13:48)
[2020-08-27] MEDS ORDERED: ASCO500T11 PO (13:48)
[2020-08-27] MEDS ORDERED: ZINC220C8 PO (13:48)
[2020-08-27] MEDS ORDERED: MET25T PO (13:48)
[2020-08-27] MEDS ORDERED: ALBUAER3 IN (13:48)
[2020-08-27] MEDS ORDERED: CHOL1CAP47 PO (13:48)
[2020-08-27] MEDS ORDERED: LEVO500T21 PO (13:48)
[2020-08-27] MEDS ORDERED: FURO1TAB33 GT (13:48)
[2020-08-27] MEDS ORDERED: ASPI1TAB19 PO (13:50)
[2020-08-27] MEDS: ASPirin 81 mg TAB PO SCH (14:28)
--- NOTE | 2020-08-27 16:12 | NUR ---
SS consult for home oxygen. Faxed clinical information to [facility] to obtain authorization. Faxed clinical information to [employer] for oxygen delivery. Portable tank to be delivered to the bedside and concentrator to the home. Authorization received from [facility]( [id number]) and a request for a pulse ox on RA from [facility]. Notified covering nurse of request for pulse ox and was informed that pt was being evaluated for HH vs SNF. Advised nurse SS unaware of this potential change in the d/c plan and to please update when additional information is obtained.
[2020-08-27 16:41] VITALS: BP 122/66
--- NOTE | 2020-08-27 19:18 | NUR ---
end of shift note Endorsed care to NOC RN. No s/s of distress noted.
--- NOTE | 2020-08-27 19:55 | NUR ---
Opening Shift Note Assumed care of patient, awake and alert. No S/S of distress/SOB or pain. Waters draining to gravity hanging below bed. Instructed on POC and to call for assist PRN, will continue to monitor for changes Q1hr and PRN.
[2020-08-27 20:00] VITALS: BP 98/59
[2020-08-27 22:00] VITALS: BP 98/59
[2020-08-27] MEDS: PROMETHAZINE W/CODEINE 5 ML ORAL SYRUP PO PRN (22:09)
[2020-08-27] MEDS: INSULIN LANTUS (GLARGINE) 1 /0.01ml (100units/ml) SC SCH (22:12)
[2020-08-28] VITALS (7 sets, daily range): BP systolic 98–147; BP diastolic 49–71
--- NOTE | 2020-08-28 00:10 | NUR ---
Anxiety Medication Patient c/o anxiety, offered Xanax but patient refuse. Patient said, "can I have Paxil, I take that at home". Dr. Avalos ordered Paxil 10 mg PO once, repeated orders to verified.
[2020-08-28] MEDS ORDERED: PARoxetine 20 MG TAB PO ONE (00:15)
[2020-08-28] MEDS: ACCU-CHEK COMFORT CURVE STRIP VI SCH ×4 (06:05→23:11)
[2020-08-28] MEDS: InsuLIN REG 1unit/0.01ml Soln (100units/ml) SC SCH ×4 (06:05→23:13)
[2020-08-28] MEDS: LEVOTHYROXINE SODIUM 100 MCG TAB PO SCH (06:22)
[2020-08-28 07:12] LABS: Basophils # (auto) 0 10 ^3/uL (0-0.2); Eosinophils # (auto) 0.1 10 ^3/uL (0-0.8); Lymphocytes # (auto) 0.6 10 ^3/uL (0.4-5.4); Monocytes # (auto) 0.4 10 ^3/uL (0-1.3); Nucleated Red Blood Cells % 0.1 %; White Blood Cell 7.4 10^3/uL (4.4-10.8)
[2020-08-28 07:14] LABS: Basophils % (auto) 0.2 % (0.0-2.0); Eosinophils % (auto) 0.9 % (0.0-7.0); Hematocrit 35.3 % (36.0-46.0); Hemoglobin 11.5 g/dL (12.2-16.2); Lymphocytes % (auto) 8.5 % (10.0-50.0); Mean Corpuscular Hemoglobin 26.6 pg (28.0-32.0); Mean Corpuscular Hgb Conc. 32.7 g/dL (32.0-36.0); Mean Corpuscular Volume 81.3 fL (80.0-100.0); Monocytes % (auto) 5.8 % (0.0-12.0); Neutrophils # (auto) 6.2 10 ^3/uL (1.6-8.6); Neutrophils % (auto) 84.6 % (37.0-80.0); Platelet Count (auto) 200 10^3/uL (140-450); Red Blood Cells 4.34 10^6/uL (4.0-5.20); Red Cell Distribution Width 15.8 % (11.8-14.3)
[2020-08-28 07:35] LABS: Potassium 4.1 mmol/L (3.5-5.1)
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
[2020-08-28 07:45] LABS: Albumin 1.8 g/dL (3.4-5.0); BUN/Creatinine Ratio 18.9; Bilirubin, Total 0.8 mg/dL (0.2-1.0); Calcium 6.4 mg/dL (8.5-10.1); Total Protein 6.6 g/dL (6.4-8.2)
[2020-08-28] MEDS: DexAMETHasone SOD PHOS 10MG/1ML VIAL INJ IV SCH (10:39)
[2020-08-28] MEDS: ASPirin 81 mg TAB PO SCH (10:40)
[2020-08-28] MEDS: ZINC SULFATE 220mg CAP or TAB PO SCH (10:40)
[2020-08-28] MEDS: levoFLOXacin 750MG 150 ML IV SCH (10:40)
[2020-08-28] MEDS: POTASSIUM CHL 20 Meq TABLET PO SCH (10:40)
[2020-08-28] MEDS: FAMOTIDINE 20 MG TAB PO SCH ×2 (10:41→23:11)
[2020-08-28] MEDS: CHOLECALCIFEROL (VITD3) 2,000 UNIT CAP PO SCH (10:41)
[2020-08-28] MEDS: ASCORBIC ACID 500 MG TAB PO SCH (10:41)
[2020-08-28] MEDS: METOPROLOL TARTRATE 25 MG TAB PO SCH ×2 (10:42→23:11)
[2020-08-28] MEDS: FUROSEMIDE 40 MG TAB PO SCH (10:42)
--- NOTE | 2020-08-28 10:55 | NUR ---
Paged Physical therapy Paged Wesley with PT for updated on patient evaluation. Awaiting call back.
--- NOTE | 2020-08-28 11:15 | NUR ---
Physical therapy Spoke with Ari with physical therapy. Per Ari patient only ambulated 10 feet and requires assistance, and Jay is recommending SNF placement for further care. Per Ari he cannot eval the patient and will notify Wesley for eval. Informed Jay that Wesley was paged, but no call back was received.
--- NOTE | 2020-08-28 12:12 | NUR ---
physician rounding Dr. Mehta at bedside, updated patient on plan of care, patient verbalized understanding.
--- NOTE | 2020-08-28 12:36 | NUR ---
called MD Called Dr. Marvin Barcenas and left message regarding D/C. Awaiting call back.
--- NOTE | 2020-08-28 14:09 | NUR ---
paged PT Paged physical Wesley physical therapist, for evaluation updated. Awaiting call back.
--- NOTE | 2020-08-28 14:11 | NUR ---
PT call back Received Call back from Wesley with PT. Per Wesley, the recommendation is rehab facility for physical therapy. He stated that MD was notified of eval yesterday. Will notify MD or update.
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
--- NOTE | 2020-08-28 16:52 | NUR ---
D/C Planning Regarding social service consult for SNF order. Patient is in agreement to be placed at a [facility] nursing facility for rehabilitation. Faxed clinical information to [facility], [facility], [facility]. Per Teetee with [facility] patient has been accepted and they will order a bariatric bed for patient and can accept patient on 08/29/20. Informed bedside nurse. Will follow up in the AM.
--- NOTE | 2020-08-28 17:00 | NUR ---
D/C Planning Faxed clinical information to [facility] requesting authorization for [facility].
[2020-08-28] MEDS ORDERED: DOCUSATE SOD 100 MG CAP PO PRN (18:00)
[2020-08-28] MEDS ORDERED: POLYETHYLENE GLYCOL 17 GM PWDR PO ONE (18:00)
--- NOTE | 2020-08-28 18:40 | NUR ---
updated patient that PRN stool softer is available. As well as a one time dose of miralax. Per patient she does not want either, she stated, "I will let you know when I need it."
--- NOTE | 2020-08-28 19:10 | NUR ---
end of shift note Endorsed care to NOC FABI Wong. No s/s of distress noted.
--- NOTE | 2020-08-28 22:22 | NUR ---
Respiratory note: PT RECIEVED ON NC5L. PT WAS AWAKE, NO RESP DISTRESS NOTED. HR 89, RR 20, SPO2 92%. NO MDI AT BEDSIDE. PRN TX NOT INDICATED.
[2020-08-28] MEDS: INSULIN LANTUS (GLARGINE) 1 /0.01ml (100units/ml) SC SCH (23:12)
[2020-08-29 05:00] VITALS: BP 122/57
[2020-08-29] MEDS: InsuLIN REG 1unit/0.01ml Soln (100units/ml) SC SCH ×3 (06:57→17:00)
[2020-08-29] MEDS: ACCU-CHEK COMFORT CURVE STRIP VI SCH ×4 (06:57→23:52)
[2020-08-29] MEDS: LEVOTHYROXINE SODIUM 100 MCG TAB PO SCH (06:57)
--- NOTE | 2020-08-29 07:40 | NUR ---
Opening Shift Note Assumed care of patient, awake and alert. A/O X 4. 4L NC. No S/S of distress/SOB or pain. Skin is in tact with brown discoloration noted on the right ankle and man. Weak pedal pulses palpated in lower extremities. Bowel sounds heard throughout. 300 yellow clear urine noted in the Waters. Instructed on POC and to call for assist PRN. Patient verbalized understanding. Safety measures in place and the call light is within reach of the patient. Will continue to monitor for changes Q1hr and PRN.
[2020-08-29 08:00] VITALS: BP 124/60
[2020-08-29 09:00] VITALS: BP 120/82
[2020-08-29] MEDS: ZINC SULFATE 220mg CAP or TAB PO SCH (09:41)
[2020-08-29] MEDS: FUROSEMIDE 40 MG TAB PO SCH (09:42)
[2020-08-29] MEDS: ASPirin 81 mg TAB PO SCH (09:42)
[2020-08-29] MEDS: POTASSIUM CHL 20 Meq TABLET PO SCH (09:43)
[2020-08-29] MEDS: ASCORBIC ACID 500 MG TAB PO SCH (09:43)
[2020-08-29] MEDS: CHOLECALCIFEROL (VITD3) 2,000 UNIT CAP PO SCH (09:44)
[2020-08-29] MEDS: FAMOTIDINE 20 MG TAB PO SCH ×2 (09:44→23:52)
[2020-08-29] MEDS: levoFLOXacin 750MG 150 ML IV SCH (09:45)
[2020-08-29] MEDS: DexAMETHasone SOD PHOS 10MG/1ML VIAL INJ IV SCH (09:45)
[2020-08-29] MEDS: METOPROLOL TARTRATE 25 MG TAB PO SCH ×2 (09:45→23:51)
--- NOTE | 2020-08-29 11:37 | NUR ---
Nutrition Followup Notes Wt: 149.7 kg Pt is positive for COVID, in isolation, no distress noted per RN . Pt is with a CCHO 60 gm diet with an improved appetite aeb ave 82% PO intake x4 meals per RN doc. Est Energy needs: 9145-1912 kcals (12-15 kcal/kgBW), Est Protein needs: 130-163 gms/day (0.8-1.0 gm/kgBW). Will continue to monitor and reassess prn. LABS: CA 6.4 L, ALB 1.8 L GI: Pt had no BM today per RN doc BS: 14 mod risk. Refer to wound assessment report for further details. PES: 1) Obesity r/t energy intake in excess of energy needs aeb BMI of 56.2 kg/m2 2) Altered nutrition related lab values r/t current/chronic medical condition aeb elev RFTs, hyperglycemia, hypoalbuminemia Comments: Will continue to monitor PO status, skin status, pertinent labs and weight trends. Will f/u in 3-5 days 1) Consider Prostat 1 pkt BID. 2) Refer to CDE on DC. 3) Continue current plan of care
[2020-08-29 12:43] VITALS: BP 124/60
--- NOTE | 2020-08-29 13:29 | NUR ---
D/C Planning Teetee with [facility] advised me patient bariatric bed will arrived to the facility between 16:00-17:00. Transportation has been arranged with [facility] between 18:00-18:30 via [facility]. Transportation is aware that patient is (+) Covid. Obtain authorization from [facility] [id number] Transportation [id number]. Informed FABI Casey.
--- NOTE | 2020-08-29 13:30 | NUR ---
D/C Planning [facility] Patient will be going to room 205 bed 1 accepting , Dr. Duron.
[2020-08-29 17:00] VITALS: BP 109/60
--- NOTE | 2020-08-29 19:20 | NUR ---
Report called in Report called into Jesus at [facility]. Patient going to room 205 bed 1.
--- NOTE | 2020-08-29 19:30 | NUR ---
[facility] [facility] personal stated they would not be coming back to sweet pickled fruit maker patient since she was not ready at the time they were here. Phoned [employer] [facility] to schedule another sweet pickled fruit maker for patient, dispatch stated "there are no more bariatric gurneys so no one will be able to transport patient at this time, and [facility] will have to reschedule for tomorrow".
--- NOTE | 2020-08-29 19:50 | NUR ---
Dr. Marvin Barcenas made aware that patient cannot be transferred at this time. .
--- NOTE | 2020-08-29 20:10 | NUR ---
[facility] aware patient will not be transferred tonight.
[2020-08-29 22:00] VITALS: BP 116/62
--- NOTE | 2020-08-29 22:31 | NUR ---
ASSESSED PT @ THIS TIME FOR PRN MED NEB TX. PT IS RESTING IN BED. SHE STATES HER BREATHING IS DOING FINE, JUST C/O OF BEING COLD. NO DISTRES NOTED. CURRENTLY ON A 4L NC SPO2 92%, HR 92, RR 18 AND BS ARE CLEAR/DIMINISHED T/O. SHE IS AWARE TO CALL IF SHE FEELS SOB.
[2020-08-30] MEDS: InsuLIN REG 1unit/0.01ml Soln (100units/ml) SC SCH ×3 (00:02→11:48)
[2020-08-30] MEDS: INSULIN LANTUS (GLARGINE) 1 /0.01ml (100units/ml) SC SCH (00:03)
[2020-08-30 06:06] VITALS: BP 99/47
[2020-08-30] MEDS: ACCU-CHEK COMFORT CURVE STRIP VI SCH ×2 (07:01→11:48)
[2020-08-30] MEDS: LEVOTHYROXINE SODIUM 100 MCG TAB PO SCH (07:10)
--- NOTE | 2020-08-30 07:15 | NUR ---
Respiratory note: PRN MED NEB TX NOT WANTED/INDICATED AT THIS TIME. HR 84, RR 16, SPO2 94%ON 4 L NC BS DIMINISHED. PT INFORMED TO PRONE EVERY 30 MINS TO [employer] OXYGENATION.
[2020-08-30 08:00] VITALS: BP 117/57
--- NOTE | 2020-08-30 09:15 | NUR ---
SW MADE AWARE OF TRANSPORT SITUATION. PER SW TRANSPORT WILL BE SET UP BETWEEN [id number] DR. CHOW AWARE OF STATUS. PT AWARE OF STATUS. WILL CONTINUE TO MONITOR.
[2020-08-30] MEDS: DexAMETHasone SOD PHOS 10MG/1ML VIAL INJ IV SCH (10:00)
[2020-08-30] MEDS: levoFLOXacin 750MG 150 ML IV SCH (10:00)
[2020-08-30] MEDS: ASPirin 81 mg TAB PO SCH (10:30)
[2020-08-30] MEDS: POTASSIUM CHL 20 Meq TABLET PO SCH (10:30)
[2020-08-30] MEDS: METOPROLOL TARTRATE 25 MG TAB PO SCH (10:30)
[2020-08-30] MEDS: ZINC SULFATE 220mg CAP or TAB PO SCH (10:30)
[2020-08-30] MEDS: FUROSEMIDE 40 MG TAB PO SCH (10:30)
--- NOTE | 2020-08-30 10:30 | NUR ---
DR. CHOW AWARE OF NO IV LINE. PT AWAITING TRANSPORT TO [facility]
[2020-08-30] MEDS: CHOLECALCIFEROL (VITD3) 2,000 UNIT CAP PO SCH (10:31)
[2020-08-30] MEDS: FAMOTIDINE 20 MG TAB PO SCH (10:31)
[2020-08-30] MEDS: ASCORBIC ACID 500 MG TAB PO SCH (10:31)
--- NOTE | 2020-08-30 11:16 | NUR ---
D/C Planning Transportation has been arranged with [employer] between 12:00-12:30 via [employer]. Informed FABI Kingsley.
[2020-08-30 12:00] VITALS: BP 126/40
--- NOTE | 2020-08-30 12:40 | NUR ---
DISCHARGE INSTRUCTIONS PROVIDED TO PT. PT VERBALIZED UNDERSTANDING FOR TRANSFER. TELE BOX REMOVED AND RETURNED TO TELE DEPT.
--- NOTE | 2020-08-30 12:53 | NUR ---
TRANSPORT ARRIVED. PT PREP FOR TRANSPORT. PT ON 4LNC TOLERATING WELL. REPORT GIVEN TO TRANSPORT UNIT AND DESTINATION VERIFIED.
--- NOTE | 2020-08-30 12:58 | NUR ---
NAILA (SPOKE TO STEVIE-FABI) MADE AWARE OF PT'S TRANSPORT.
== END 2020-08-30 13:00 | DRG 720 ==
LOC: EDSEX 16:38 → ER 16:38 → EDBD 16:38 → TELE 16:39 → TELE-EAST 23:55 → TELE-WESTW 08-17 05:28 → TELE-EAST 08-22 18:31
PROVIDERS: ADMIT Internal Medicine; ATTEND Internal Medicine
PROC: 30233R1 Transfusion of Nonautologous Platelets into Peripheral Vein, Percutaneous Approach (ICD-10-PCS; 2020-08-20)
PROC: XW033E5 Introduction of Remdesivir Anti-infective into Peripheral Vein, Percutaneous Approach, New Technology Group 5 (ICD-10-PCS; principal; 2020-08-22)
DX: A41.9 Sepsis, unspecified organism (principal); U07.1 COVID-19; N17.0 Acute kidney failure with tubular necrosis; I50.43 Acute on chronic combined systolic (congestive) and diastolic (congestive) heart failure; D69.3 Immune thrombocytopenic purpura; E87.2 Acidosis; E11.22 Type 2 diabetes mellitus with diabetic chronic kidney disease; J12.89 Other viral pneumonia; E03.9 Hypothyroidism, unspecified; E66.01 Morbid (severe) obesity due to excess calories; E88.09 Other disorders of plasma-protein metabolism, not elsewhere classified; J44.9 Chronic obstructive pulmonary disease, unspecified; N18.4 Chronic kidney disease, stage 4 (severe); N13.6 Pyonephrosis; B96.20 Unspecified Escherichia coli [E. coli] as the cause of diseases classified elsewhere; J96.01 Acute respiratory failure with hypoxia; E79.0 Hyperuricemia without signs of inflammatory arthritis and tophaceous disease; Z60.2 Problems related to living alone; R94.5 Abnormal results of liver function studies; I13.2 Hypertensive heart and chronic kidney disease with heart failure and with stage 5 chronic kidney disease, or end stage renal disease; M19.90 Unspecified osteoarthritis, unspecified site; Z74.01 Bed confinement status; Z68.43 Body mass index [BMI] 50.0-59.9, adult; Z79.84 Long term (current) use of oral hypoglycemic drugs; Z79.899 Other long term (current) drug therapy
CPT/HCPCS: 36415; 36600; 51702; 71045; 74176; 76705; 76775; 80048; 80053; 80076; 81001; 82306; 82570; 82728; 82805; 82962; 82977; 83036; 83605; 83735; 83880; 83970; 84100; 84156; 84300; 84484; 84550; 85007; 85025; 85027; 85379; 85384; 85610; 85730; 86141; 86850; 86900; 86901; 87040; 87077; 87086; 87186; 87426; 93005; 93970; 96361; 96365; 97110; 97116; 97163; 97530; G0378; J0696; J1100; J1561; J1815; J1956; J2405